=== PATIENT | male | born 1950 | race Caucasian/White ===

== ENCOUNTER 2020-12-21 19:07 | Inpatient (IN) | payer OTHER ==
--- NOTE | 2020-12-21 20:55 | RAD REPORT ---
EXAM DESCRIPTION: RAD - Foot Right 3 View - 12/21/2020 8:46 pm CLINICAL HISTORY: Right foot pain FINDINGS: Extensive bony fragmentation involves the tarsal metatarsal joints. The proximal metatarsa ls are dislocated. Multiple nondisplaced fractures. 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 Large calcaneal spur
[2020-12-21 21:41] LABS: Absolute Lymphocytes (CBC) 1.2 K/uL (0.7-4.9); Basophils % 0.3 % (0-1.3); Hematocrit 31.4 % (39.6-49.0); Lymphocytes % 7.3 % (15.3-44.8); MPV 8.2 fL (7.6-11.3); RBC Red Blood Cell Count 3.62 M/uL (4.33-5.43)
[2020-12-21] MEDS ORDERED: NA CHLORIDE 0.9% 250 ML ONE (21:41)
[2020-12-21] MEDS ORDERED: Levofloxacin 750mg IV 750 MG/150 ML BAG IV ONE (21:41)
[2020-12-21] MEDS ORDERED: VANCOMYCIN 1 GM/VIAL ONE (21:41)
[2020-12-21 21:57] LABS: ALT/SGPT 24 U/L (12-78); AST/SGOT 16 U/L (15-37); Albumin 2.7 g/dL (3.4-5.0); Alkaline Phosphatase 138 U/L (45-117); BUN Blood Urea Nitrogen 20 mg/dL (7-18); Bicarbonate 26 mmol/L (21-32); Bilirubin Direct 0.2 mg/dL (0-0.2); Bilirubin Total 0.5 mg/dL (0.2-1.0); Glucose Level 117 mg/dL (74-106); Potassium 5.3 mmol/L (3.5-5.1); Protein, Total 8.2 g/dL (6.4-8.2); Sodium Level 135 mmol/L (136-145); Troponin (Emerg Dept Use Only) < 0.02 ng/mL (0.0-0.045)
--- NOTE | 2020-12-21 22:12 | ER ---
Nurse's Notes [facility] Name: Tristin Mazariegos Age: 70 yrs Sex: Male : 1950 Arrival Date: 12/21/2020 Time: 19:11 Bed 25 Private MD: Diagnosis: Cellulitis of right lower limb Presentation: 12/21 19:53 Chief complaint: Patient states: Pt has Right foot pain, redness, swelling, and fever vg1 that began yesterday. Pt stated fever today at 1930 was 102.2, did not give meds. Pt also took an antibiotic today at 1500. Coronavirus screen: Client denies travel out of the [place] in the last 14 days. Ebola Screen: Patient negative for fever greater than or equal to 101.5 degrees Fahrenheit, and additional compatible Ebola Virus Disease symptoms. Initial Sepsis Screen: Does the patient meet any 2 criteria? No. Patient's initial sepsis screen is negative. Does the patient have a suspected source of infection? No. Patient's initial sepsis screen is negative. Risk Assessment: Do you want to hurt yourself or someone else? Patient reports no desire to harm self or others. Onset of symptoms was December 20, 2020. 19:53 Method Of Arrival: Wheelchair vg1 19:53 Acuity: RANDOLPH 3 vg1 Triage Assessment: 19:58 Pain: Complains of pain in Right Foot Pain currently is 8 out of 10 on a pain scale. vg1 Historical: - Allergies: 19:58 No Known Allergies; vg1 - Immunization history:: Adult Immunizations up to date, Client reports receiving the 2nd dose of the Covid vaccine. - Social history:: Smoking status: Patient denies any tobacco usage or history of. Screenin:30 Abuse screen: Denies threats or abuse. Denies injuries from another. Nutritional wh screening: No deficits noted. Tuberculosis screening: No symptoms or risk factors identified. Fall Risk None identified. Assessment: 20:15 General: Appears in no apparent distress. Behavior is calm, cooperative, appropriate wh for age. Pain: Complains of pain in right foot. Neuro: Level of Consciousness is awake, alert, obeys commands, Oriented to person, place, time, situation, Appropriate for age. Cardiovascular: Capillary refill < 3 seconds. Respiratory: Airway is patent Respiratory effort is even, unlabored, Respiratory pattern is regular, symmetrical. GI: Abdomen is round non-distended. : No signs and/or symptoms were reported regarding the genitourinary system. EENT: No signs and/or symptoms were reported regarding the EENT system. Derm: Skin is red, Right foot. Musculoskeletal: Swelling right foot. 21:30 Reassessment: Patient appears in no apparent distress at this time. No changes from previously documented assessment. Patient and/or family updated on plan of care and expected duration. Pain level reassessed. Patient is alert, oriented x 3, equal unlabored respirations, skin warm/dry/pink. 22:24 Reassessment: Patient appears in no apparent distress at this time. Patient and/or family updated on plan of care and expected duration. Pain level reassessed. Patient is alert, oriented x 3, equal unlabored respirations, skin warm/dry/pink. 23:46 Reassessment: Patient and/or family updated on plan of care and expected duration. Pain bb level reassessed. pt resting quietly, IV site intact, patent with fluids infusing, spouse at bedside awaiting room assignment. Vital Signs: 19:53 BP 111 / 69; Pulse 90; Resp 18; Temp 100.2; Pulse Ox 95% ; Weight 115.67 kg; Height 6 vg1 ft. 0 in. (182.88 cm); Pain 8/10; 21:00 BP 113 / 55; Pulse 77; Resp 18; Pulse Ox 97% ; wh 22:15 BP 112 / 61; Pulse 86; Resp 18; Pulse Ox 98% on R/A; wh 23:10 Temp 100.2; bb 23:46 BP 93 / 58; Pulse 81; Resp 18 S; Temp 99.6(O); Pulse Ox 96% on R/A; bb 19:53 Body Mass Index 34.58 (115.67 kg, 182.88 cm) vg1 ED Course: 19:11 Patient arrived in ED. bp1 19:58 Triage completed. vg1 19:58 Arm band placed on. vg1 20:10 Sandra Jolly FNP-C [facility] kb 20:10 Cristina Raza MD is Attending Physician. kb 20:26 Marisol Davenport, UGO is Primary Nurse. wh 20:30 Patient has correct armband on for positive identification. Bed in low position. Call light in reach. Side rails up X 1. monitor car operator on. Pulse ox on. NIBP on. 20:45 Foot Right 3 View XRAY In Process Unspecified. EDMS 21:41 Extremity Venous Uni Ltd US In Process Unspecified. EDMS 22:11 Tony Desir MD is Hospitalizing Provider. kb 22:25 Report given to Shaylee Short RN. 12/22 00:02 No provider procedures requiring assistance completed. Patient admitted, IV remains in bb place. Administered Medications: 12/21 21:30 Drug: LevaQUIN (levofloxacin) 750 mg Route: IVPB; Site: right antecubital; 23:10 Follow up: IV Status: Completed infusion; IV Intake: 100ml 23:10 Drug: vancoMYCIN 1 grams Route: IVPB; Infused Over: 2 hrs; Site: right antecubital; 12/22 00:19 Follow up: IV Status: Infusion continued upon admission 12/21 23:10 Drug: Tylenol 1000 mg Route: PO; 23:54 Follow up: Response: Temperature is decreased bb Intake: 23:10 IV: 100ml; Total: 100ml. bb Outcome: 22:11 Decision to Hospitalize by Provider. 12/22 00:02 Admitted to Tele accompanied by tech, family with patient, via stretcher, room 229, bb with chart, Report called to Shailesh ARIZMENDI Condition: stable Instructed on the need for admit. 00:20 Patient left the ED. bb Signatures: Dispatcher [employer] EDMS Sandra Jolly, CURTAIN FELLER BLINDSTITCH-Jovanna BRAUN-Shaylee Wood, RN RN Marisol Davenport, UGO ARIZMENDI Lizet Morel, RN RN vg1 Lisa Perry bp1
--- NOTE | 2020-12-21 22:12 | EDPHYS ---
Physician Documentation [facility] Name: Tristin Mazariegos Age: 70 yrs Sex: Male : 1950 Arrival Date: 12/21/2020 Time: 19:11 Bed 25 Private MD: ED Physician Cristina Raza HPI: 12/21 22:09 This 70 yrs old Male presents to ER via Wheelchair with complaints of Fever, kb Foot Pain. 22:09 The patient has experienced a previous episode. The patient has been recently seen by a physician: sleeve tailor. 22:10 The patient presents with cellulitis of the dorsum of right foot and arch of right kb foot. Description: erythematous, hot, swollen. Onset: The symptoms/episode began/occurred 2 week(s) ago, and became worse. Possible cause(s): unknown. Associated signs and symptoms: Pertinent positives: erythema, swelling. Modifying factors: the symptoms are alleviated by nothing, the symptoms are aggravated by nothing. Severity of symptoms: At their worst the symptoms were moderate, in the emergency department the symptoms are unchanged. Historical: - Allergies: 19:58 No Known Allergies; vg1 - Immunization history:: Adult Immunizations up to date, Client reports receiving the 2nd dose of the Covid vaccine. - Social history:: Smoking status: Patient denies any tobacco usage or history of. ROS: 22:06 Constitutional: Positive for fever. kb 22:06 Skin: Positive for cellulitis, erythema, swelling, of the arch of right foot and dorsum of right foot. 22:06 All other systems are negative. Exam: 22:06 Constitutional: This is a well developed, well nourished patient who is awake, alert, kb and in no acute distress. Head/Face: Normocephalic, atraumatic. ENT: Moist Mucous membranes Cardiovascular: Regular rate and rhythm with a normal S1 and S2. No gallops, murmurs, or rubs. No pulse deficits. Respiratory: Respirations even and unlabored. No increased work of breathing, no retractions or nasal flaring. Abdomen/GI: Soft, non-tender. No distention MS/ Extremity: Pulses equal, no cyanosis. Neurovascular intact. Full, normal range of motion. Neuro: Awake and alert, GCS 15, oriented to person, place, time, and situation. Moves all extremities. Normal gait. Psych: Awake, alert, with orientation to person, place and time. Behavior, mood, and affect are within normal limits. 22:06 Skin: cellulitis, that is moderate, on the dorsum of right foot and arch of right foot. Vital Signs: 19:53 BP 111 / 69; Pulse 90; Resp 18; Temp 100.2; Pulse Ox 95% ; Weight 115.67 kg; Height 6 vg1 ft. 0 in. (182.88 cm); Pain 8/10; 21:00 BP 113 / 55; Pulse 77; Resp 18; Pulse Ox 97% ; wh 22:15 BP 112 / 61; Pulse 86; Resp 18; Pulse Ox 98% on R/A; wh 23:10 Temp 100.2; bb 23:46 BP 93 / 58; Pulse 81; Resp 18 S; Temp 99.6(O); Pulse Ox 96% on R/A; bb 19:53 Body Mass Index 34.58 (115.67 kg, 182.88 cm) vg1 MDM: 20:10 Patient medically screened. kb 22:05 Data reviewed: vital signs, nurses notes. Data interpreted: Pulse oximetry: on room air kb is 95 %. Interpretation: normal. Counseling: I had a detailed discussion with the patient and/or guardian regarding: the historical points, exam findings, and any diagnostic results supporting the discharge/admit diagnosis, lab results, radiology results, the need for further work-up and treatment in the hospital. 22:08 Physician consultation: Lee AGUIRRE was contacted at 22:08, regarding admission, kb to the medical/surgical unit. patient's condition, in the emergency department to see patient at 22:09. 12/21 20:18 Order name: CBC with Diff; Complete Time: 21:45 kb 12/21 20:18 Order name: Blood Culture Adult (2) kb 12/21 20:18 Order name: Lactate; Complete Time: 22:01 kb 12/21 20:18 Order name: Procalcitonin; Complete Time: 23:07 kb 12/21 20:35 Order name: COVID-19 : Document "Date of Symptom Onset" if Symptomatic. kb 12/21 20:22 Order name: Foot Right 3 View XRAY; Complete Time: 20:58 kb 12/21 20:48 Order name: Extremity Venous Uni Ltd US [facility] 12/21 20:48 Order name: Troponin (emerg Dept Use Only); Complete Time: 22:04 [facility] 12/21 20:48 Order name: LFT's; Complete Time: 22:04 [facility] 12/21 20:48 Order name: ESR; Complete Time: 22:12 [facility] 12/21 20:48 Order name: CRP; Complete Time: 22:04 [facility] 12/21 21:35 Order name: Basic Metabolic Panel; Complete Time: 22:04 [facility] 12/21 23:23 Order name: SARS-COV-2 RT PCR; Complete Time: 23:23 [facility] 12/21 20:18 Order name: IV Start; Complete Time: 21:18 12/21 20:48 Order name: EKG - Nurse/Tech; Complete Time: 21:18 [facility] Administered Medications: 21:30 Drug: LevaQUIN (levofloxacin) 750 mg Route: IVPB; Site: right antecubital; 23:10 Follow up: IV Status: Completed infusion; IV Intake: 100ml 23:10 Drug: vancoMYCIN 1 grams Route: IVPB; Infused Over: 2 hrs; Site: right antecubital; 12/22 00:19 Follow up: IV Status: Infusion continued upon admission 12/21 23:10 Drug: Tylenol 1000 mg Route: PO; 23:54 Follow up: Response: Temperature is decreased bb Disposition: 22:11 Chart complete. kb Disposition: 12/21/20 22:11 Hospitalization ordered by Tony Desir for Inpatient Admission. Preliminary diagnosis is Cellulitis of right lower limb. - Bed requested for Telemetry/MedSurg (Inpatient). - Status is Inpatient Admission. bb - Condition is Stable. - Problem is new. - Symptoms are unchanged. Signatures: Dispatcher [employer] EDVT Sandra Jolly, APARNA-C COMMUNITY HEALTH REPRESENTATIVE-Sharon Thomas RN UGO Shaylee Short RN RN bb Attema, Lee, FNP-C FNP-Marisol Partida RN RN Lizet Morel, RN RN vg1 Corrections: (The following items were deleted from the chart) 21:34 20:19 BASIC METABOLIC PANEL+C.LAB.BRZ ordered. EDVT EDVT 22:11 22:09 Modifying factors: there are no obvious modifying factors, kb kb 22:11 22:09 Associated signs and symptoms: Pertinent positives: kb kb 23:56 22:11 Hospitalization Ordered by Tony Desir MD for Inpatient Admission. Preliminary dw diagnosis is Cellulitis of right lower limb. Bed requested for Telemetry/MedSurg (Inpatient). Status is Inpatient Admission. Condition is Stable. Problem is new. Symptoms are unchanged. kb 12/22 00:20 12/21 23:56 12/21/2020 22:11 Hospitalization Ordered by Tony Desir MD for Inpatient bb Admission. Preliminary diagnosis is Cellulitis of right lower limb. Bed requested for Telemetry/MedSurg (Inpatient). Status is Inpatient Admission. Condition is Stable. Problem is new. Symptoms are unchanged. dw
--- NOTE | 2020-12-21 22:39 | P.HP ---
Certification for Inpatient Patient admitted to: Inpatient With expected LOS: >2 Midnights Patient will require the following post-hospital care: None Practitioner: I am a practitioner with admitting privileges, knowledge of patient current condition, hospital course, and medical plan of care. Services: Services provided to patient in accordance with Admission requirements found in Title 42 Section 412.3 of the Code of Federal Regulations Patient History Date of Service: 12/21/20 Reason for admission: Cellulitis, fever History of Present Illness: 70-year-old male with history of atrial fibrillation, borderline diabetes, hypertension, CAD, BPH presents emergency department for fever and foot pain/rash. Patient history of Charcot deformity to the right lower extremity, sees podiatry on outpatient basis. Patient started running fever this morning, T-max 102, was given prescription for Augmentin which she took 1 dose of today. Podiatry recommended evaluation in the emergency department due to fever, patient evaluated in the emergency department, labs significant for white blood cell count 16.6 hemoglobin 10.5 hematocrit 31.4 ESR 118 sodium 135 potassium 5.3, BUN 20, glucose 117 C-reactive protein 74.4, x-ray right foot demonstrates extensive bony fragmentation involving the tarsal metatarsal joints proximal metatarsals dislocated, multiple nondisplaced fractures. Clubfoot deformity noted, area cellulitis to the medial aspect to the foot extending to include area. ED provider wishes to admit for further evaluation and m anagement. - Past Medical/Surgical History -: Diabetes mellitus type 2 -: Atrial fibrillation -: Hypertension -: BPH -: Diabetic neuropathy -: Charcot right foot -: CAD -: Chronic pain -: Right foot surgery -: Basal cell carcinoma nose Psychosocial/ Personal History: Patient is retired, lives at home with his - Family History Mother -: Heart disease, Diabetes, Cancer Brother -: Heart disease, Diabetes - Social History Smoking Status: Never smoker Alcohol use: No CD- Drugs: No Caffeine use: Yes Place of Residence: Home Review of Systems 10-point ROS is otherwise unremarkable Musculoskeletal: Foot Pain, As per HPI Integumentary: As per HPI Physical Examination - Physical Exam General: Alert, In no apparent distress, Oriented x3 HEENT: Atraumatic, PERRLA, Mucous membr. moist/pink, EOMI, Sclerae nonicteric Neck: Supple, 2+ carotid pulse no bruit, No LAD, Without JVD or thyroid abnormality Respiratory: Clear to auscultation bilaterally, Normal air movement Cardiovascular: Regular rate/rhythm, Normal S1 S2 Gastrointestinal: Normal bowel sounds, No tenderness Musculoskeletal: Erythema, Tenderness, Warmth, Other (Clubfoot noted to the right foot/Charcot) Integumentary: Tenderness/swelling, Erythema, Warmth Neurological: Normal speech, Normal strength at 5/5 x4 extr, Normal tone, Normal affect Lymphatics: No axilla or inguinal lymphadenopathy - Studies Laboratory Data (last 24 hrs) 12/21/20 21:20: Sodium 135 L, Potassium 5.3 H, BUN 20 H, Creatinine 0.83, Glucose 117 H, Total Bilirubin 0.5, AST 16, ALT 24, Alkaline Phosphatase 138 H 12/21/20 21:20: WBC 16.60 H, Hgb 10.5 L, Hct 31.4 L, Plt Count 332 12/21/20 20:18: Sodium Cancelled, Potassium Cancelled, BUN Cancelled, Creatinine Cancelled, Glucose Cancelled Assessment and Plan - Plan Assessment Fever, Cellulitis right foot with history of Charcot deformity suspect osteomyelitis Atrial fibrillation not on chronic anticoagulation therapy Diabetes mellitus type 2 CAD, hypertension, BPH, chronic pain Plan Fever, Cellulitis right foot with history of Charcot deformity suspect osteomyelitis: Blood cultures obtained in the emergency department, continue with IV Levaquin, vancomycin. Will obtain MRI of the foot to rule out osteomyelitis. Infectious Disease consulted for additional assistance. Anticipate need for PICC line and long-term antibiotics, patient will likely be able to do this with home health if it determined to be necessary. Daily labs, DVT prophylaxis Lovenox 40 mg subcutaneous once daily. Atrial fibrillation not on chronic anticoagulation therapy: Home medications continued including amiodarone, Plavix Diabetes mellitus type 2: A.c. HS Accu-Cheks, sliding scale insulin therapy. A1c with morning labs. CAD, hypertension, BPH, chronic pain: Continue home medications, stable. Discharge Plan: Home Plan to discharge in: Greater than 2 days - Advance Directives Does patient have a Living Will: No Does patient have a Durable POA for Healthcare: No - Code Status/Comfort Care Code Status Assessed: Yes (Full code) Critical Care: No Time Spent Managing Pts Care (In Minutes): 55
[2020-12-21] MEDS ORDERED: ACETAMINOPHEN 500 MG TAB ONE (23:32)
[2020-12-22] MEDS ORDERED: VANCOMYCIN/NS 1 gm 1 GM/250 ML BAG IVPB SCH (00:34)
[2020-12-22] MEDS ORDERED: Levofloxacin500mg IV 500 MG/100 ML BAG IV SCH (00:34)
[2020-12-22] MEDS ORDERED: ONDANSETRON 4 MG/2 ML VIAL IV PRN (00:34)
[2020-12-22] MEDS ORDERED: VANCOMYCIN/NS 1 gm 1 GM/250 ML BAG IVPB ONE (01:00)
[2020-12-22] MEDS ORDERED: NA CHLORIDE 0.9% 250 ML ONE (01:31)
[2020-12-22] MEDS ORDERED: VANCOMYCIN 1 GM/VIAL ONE (01:31)
[2020-12-22 02:00] VITALS: BMI 35.0
[2020-12-22 04:27] LABS: Urine Appearance CLEAR (Clear); Urine Bilirubin NEGATIVE (Negative); Urine Blood NEGATIVE (Negative); Urine Color YELLOW (Yellow); Urine Glucose NEGATIVE (Negative); Urine Protein TRACE (Negative); Urine Specific Gravity 1.015 (1.005-1.030)
[2020-12-22 04:42] LABS: Urine Microscopic Reflex ORDER UMIC
[2020-12-22 04:54] LABS: Urine Bacteria <20 /HPF (NONE SEEN); Urine RBC <5 /HPF (NONE SEEN); Urine Urothelial Cells <5 /HPF (NONE SEEN)
[2020-12-22 04:57] LABS: Absolute Lymphocytes (CBC) 1.6 K/uL (0.7-4.9); Basophils % 0.3 % (0-1.3); Hematocrit 29.3 % (39.6-49.0); Lymphocytes % 12.6 % (15.3-44.8); MPV 8.2 fL (7.6-11.3); RBC Red Blood Cell Count 3.36 M/uL (4.33-5.43)
[2020-12-22 05:23] LABS: ALT/SGPT 21 U/L (12-78); AST/SGOT 15 U/L (15-37); Albumin 2.5 g/dL (3.4-5.0); Alkaline Phosphatase 122 U/L (45-117); BUN Blood Urea Nitrogen 21 mg/dL (7-18); Bicarbonate 26 mmol/L (21-32); Bilirubin Total 0.6 mg/dL (0.2-1.0); Glucose Level 100 mg/dL (74-106); HDL Cholesterol 53 mg/dL (40-60); LDL Cholesterol, Calculated 33 (<130); Magnesium 2.3 mg/dL (1.8-2.4); Potassium 4.5 mmol/L (3.5-5.1); Protein, Total 7.5 g/dL (6.4-8.2); Sodium Level 138 mmol/L (136-145); Thyroid Stimulating Hormone 0.803 uIU/mL (0.360-3.740)
[2020-12-22] MEDS: MORPHINE 2 MG/ML SYR IV PRN ×4 (05:42→22:11)
[2020-12-22 06:15] LABS: Ferritin 739.9 ng/mL (26-388); Transferrin 170 mg/dL (200-360)
[2020-12-22 06:51] LABS: Blood Morphology Comment NOT SEEN (NOT SEEN); Platelet Estimate ADEQ
[2020-12-22] MEDS: INSULIN -REGULAR HUMAN 50 UNIT/0.5 ML ML SQ SCH ×4 (07:30→20:26)
--- NOTE | 2020-12-22 08:53 | RAD REPORT ---
EXAM DESCRIPTION: US - Extremity Venous Uni Ltd - 12/21/2020 9:41 pm CLINICAL HISTORY: SWELLING Leg swelling and edema. COMPARISON: No comparisons FINDINGS: Right lower extremity venous system was interrogated with Doppler technique. Normal flow, compressibility and augmentation was noted. There is no DVT present. IMPRESSION: No evidence of right lower extremity deep venous thrombosis.
--- NOTE | 2020-12-22 08:59 | EKG ---
Test Date: 2020-12-21 Test Time: 21:52:29 Traffic Operator: MEASUREMENT RESULTS: Intervals: Rate: 85 CO: 194 QRSD: 170 QT: 418 QTc: 497 Bluejacket: P: 102 CO: 194 QRS: -83 T: 44 INTERPRETIVE STATEMENTS: Sinus rhythm with fusion complexes Left axis deviation Right bundle branch block Abnormal ECG Compared to ECG 09/08/2012 11:12:49 Fusion complex(es) now present Left-axis deviation now present Right bundle-branch block now present Atrial premature complex(es) no longer present Electronically Signed On 12-22-20 08:58:39 CDT by Mauricio Guaman
[2020-12-22] MEDS ORDERED: CLOPIDOGREL 75 MG TABLET PO SCH (09:00)
[2020-12-22] MEDS: METOPROLOL TAR 50 MG TAB PO SCH ×2 (09:09→20:33)
[2020-12-22] MEDS: METFORMIN HCL 500 MG TAB PO SCH ×3 (09:10→17:42)
[2020-12-22] MEDS: AMIODARONE HCL 200 MG TAB PO SCH (09:10)
[2020-12-22] MEDS: MONTELUKAST 10 MG TAB PO SCH (09:10)
[2020-12-22] MEDS: GABAPENTIN 300 MG CAP PO SCH ×3 (09:10→20:25)
[2020-12-22] MEDS: ENOXAPARIN 40 MG/0.4 ML SQ SCH (09:10)
[2020-12-22] MEDS: FUROSEMIDE 40 MG TABLET PO SCH (09:10)
[2020-12-22] MEDS: ENALAPRIL 10 MG TAB PO SCH (09:10)
--- NOTE | 2020-12-22 11:54 | P.CNS ---
Date of Consult: 12/22/20 Chief Complaint: Cellulitis, fever History of Present Illness: Patient is a 70-year-old male with a past medical history of AFib, diabetes, hypertension, CAD, BPH who presented to the emergency department due to fever and right foot pain/cellulitis. Patient states that his 1st initial issues with his right foot starting to have an 17 neck Plan a cabinet fell on the foot shattering of multiple bones. Patient states that he was placed in a cast, and soon developed a ulcer to the plantar aspect of the foot. 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 Unknown if he is ever diagnosed with osteomyelitis in the past. He did complete a 6 week course of IV antibiotics at that time. Patient has history of Charcot deformity, follows with Podiatry outpatient care patient initially noted increased swelling/erythema on his right foot about 3 weeks ago after he tripped and fell. Patient completed a 2 week course of Augmentin which empirically symptoms however bottle weeks later the swelling/erythema came back in this time the patient spiked a fever. Foot x-ray taken on 12/21 showed extensive bony fragmentation. Dopplers negative for DVT. Patient has started on vancomycin and Levaquin. MRI has been ordered. Patient denies nausea, vomiting, diarrhea, shortness breath, chest pain. Allergies No Known Allergies Allergy (Verified 12/22/20 00:32) Home Medications: Amiodarone HCl [Pacerone] 1 tab PO DAILY 12/22/20 Clopidogrel Bisulfate [Plavix] 75 mg PO NOON 12/22/20 Enalapril [Vasotec*] 20 mg PO DAILY 12/22/20 Furosemide 1 tab PO DAILY 12/22/20 Gabapentin 1 tab PO TID 12/22/20 Metformin HCl 1 tab PO TID 12/22/20 Metoprolol Tartrate 1 tab PO BID 12/22/20 Montelukast Sodium 1 tab PO DAILY 12/22/20 Semaglutide [Ozempic] 0.5 mg SQ Q7D 12/22/20 Tamsulosin [Flomax*] 1 tab PO BEDTIME 12/22/20 traMADol HCL [Ultram*] 1 tab PO QID PRN 12/22/20 - Past Medical/Surgical History Diabetic: Yes -: NIDDM -: Atrial fibrillation -: Hypertension -: BPH -: Diabetic neuropathy -: Charcot right foot -: CAD -: Chronic pain -: Heart stent -: Right foot surgery -: Basal cell carcinoma nose -: Left leg surgery Psychosocial/ Personal History: Patient is retired, lives at home with his - Family History Mother Medical History: Heart disease, Diabetes, Cancer Notes: Brother Medical History: Heart disease, Diabetes - Social History Alcohol use: No CD- Drugs: No Caffeine use: No Place of Residence: Home Review of Systems 10-point ROS is otherwise unremarkable Physical Examination Temp Pulse Resp BP Pulse Ox 99.2 F 82 19 140/65 95 12/22/20 08:00 12/22/20 09:10 12/22/20 08:00 12/22/20 09:10 12/22/20 08:00 General: Alert, In no apparent distress HEENT: Atraumatic, Normocephalic Neck: Supple, 2+ carotid pulse no bruit Respiratory: Clear to auscultation bilaterally, Normal air movement Cardiovascular: No edema, Normal pulses, Regular rate/rhythm Capillary refill: <2 Seconds Gastrointestinal: Normal bowel sounds, Soft and benign Musculoskeletal: No clubbing, No swelling Integumentary: Other (Right foot Charcot changes- selling and erythema noted to foot. No open wounds/ulcers.) Neurological: Normal speech, Normal strength at 5/5 x4 extr External genitalia: Deferred Rectal: Deferred Laboratory Data (last 24 hrs) 12/21/20 21:20: Sodium 135 L, Potassium 5.3 H, BUN 20 H, Creatinine 0.83, Glucose 117 H, Total Bilirubin 0.5, AST 16, ALT 24, Alkaline Phosphatase 138 H 12/21/20 21:20: WBC 16.60 H, Hgb 10.5 L, Hct 31.4 L, Plt Count 332 12/21/20 20:18: Sodium Cancelled, Potassium Cancelled, BUN Cancelled, Creatinine Cancelled, Glucose Cancelled Conclusions/Impression: Antibiotics: -vancomycin Start: 12/21 stop: -- Levaquin start: 12/21 stop: -- Assessment: -right foot charcot changes with cellulitis -diabetes mellitus type 2 -anemia and -leukocytosis Plan: -right foot but x-ray taken on 12/21 showed extensive bony fragmentation. Pending MRI. Continue empiric therapy with vancomycin Levaquin. Blood cultures pending. -medical management per primary team -continue monitor CBC and BMP -continue to monitor for signs of infection Plan of care discussed with Dr. Guzman Thank you for consultation.
[2020-12-22] MEDS: ACETAMINOPHEN 500 MG TAB PO PRN ×2 (12:14→22:11)
[2020-12-22] MEDS: VANCOMYCIN 2 GM in NA CHLORIDE 0.9% 500 ML IVPB SCH (13:20)
[2020-12-22] MEDS: CLOPIDOGREL 75 MG TABLET PO SCH (13:21)
--- NOTE | 2020-12-22 16:23 | P.PN ---
Subjective Date of Service: 12/22/20 Chief Complaint: Cellulitis, fever Subjective: Other (mild improvement in pain, still has sharp pains shooting up legs intermittently. no change in erythema/swelling) Review of Systems 10-point ROS is otherwise unremarkable Physical Examination - Vital Signs Temperature: 99 F Blood Pressure: 128/62 Pulse: 102 Respirations: 19 Pulse Ox (%): 96 - Studies Laboratory Data (last 24 hrs) 12/21/20 21:20: Sodium 135 L, Potassium 5.3 H, BUN 20 H, Creatinine 0.83, Glucose 117 H, Total Bilirubin 0.5, AST 16, ALT 24, Alkaline Phosphatase 138 H 12/21/20 21:20: WBC 16.60 H, Hgb 10.5 L, Hct 31.4 L, Plt Count 332 12/21/20 20:18: Sodium Cancelled, Potassium Cancelled, BUN Cancelled, Creatinine Cancelled, Glucose Cancelled Assessment & Plan Physician Review Additional Text: Physical Exam General: Alert, In no apparent distress, Oriented x3 HEENT: Mucous membr. moist/pink, EOMI, Sclerae nonicteric Respiratory: Clear to auscultation bilaterally, Normal air movement Cardiovascular: Regular rate/rhythm, Normal S1 S2 Gastrointestinal: soft, nontender, nondistended Musculoskeletal: Erythema, Tenderness, Warmth, of R foot, no opening / drainage Neurological: Normal speech, normal affect Problem List Fever, Cellulitis right foot with history of Charcot deformity suspect osteomyelitis Atrial fibrillation not on chronic anticoagulation therapy Normocytic anemia Diabetes mellitus type 2 CAD, hypertension, BPH, chronic pain -f/u cultures, continue IV levaquin/vanc for now -pain medication PRN -MRI ordered to further eval -ID consulted -continue home meds - amiodarone, Plavix, gabapentin, flomax -anemia workup pending -Dr. Marcial consulted Dispo: anticipate dc home, likely 1-2 days, MRI pending Time Spent Managing Pts Care (In Minutes): 35
[2020-12-22] MEDS: TAMSULOSIN 0.4 MG SR CAP PO SCH (17:42)
--- NOTE | 2020-12-22 17:57 | RAD REPORT ---
EXAM DESCRIPTION: MRI - Foot Right Wo Cont - 12/22/2020 5:31 pm CLINICAL HISTORY: R/O osteo COMPARISON: Foot Right 3 View dated 12/21/2020 TECHNIQUE: Multiplanar imaging of the right foot performed using T1 weighted, T1 fat saturation T2 f at saturation and T2 stir sequencing. FINDINGS: Distal tibia and fibula show minimal hypointense T1 and hyperintense T2 signal along the p osterior margin and in the inferior aspect of the medial malleolus. Degenerative signal is seen at th e tip of the fibula with hypointense T1 and hyperintense T2 signal present. Extensive heterogeneous, hypointense T1 signal present throughout nearly all of the talus and in in t he mid and anterior aspect of the calcaneus. A small plantar spur is present. The posterior most aspe ct of the calcaneus shows normal signal where the Achilles and plantar tendons attached. No gross fra cture deformity of the talus or calcaneus. Base of the fifth metatarsal is fractured. Abnormal hypointense T1 and hyperintense T2 signal is pres ent from the base to distal shaft. The fifth metatarsal head maintains normal signal. Hypo and obtain ed ski 1 hyperintense T2 signal present in the base of the second- fourth metatarsals. First metatars al signal abnormality extends from base to distal shaft. There is dorsal dislocation of the first-fourth metatarsals. The navicular bone is rotated medially a nd shows abnormal T1/T2 signal characteristics. The medial cuneiform is dislocated superiorly along w ith the first metatarsal base. Middle and lateral cuneiform bones are poorly defined and displaced in feriorly in the foot. Cuboid bone is difficult to identified but is probably displaced to the medial plantar region of the foot. Fluid is seen centrally within the joint space. A small 2 centimeter flui d collection is present along the medial margin of the first metatarsal base. Extensive soft tissue signal abnormality is present in the midfoot tissues prominently along the plan tar surface of the foot. IMPRESSION: Right foot fracture dislocation changes are present as detailed associated with this frandy ropathic joint. The very extensive bone signal abnormality is nonspecific. The fracture dislocation neuropathic joint processes sufficient for creating this pattern of signal abnormality. Concurrent or superimposed ost eomyelitis is certainly possible.
[2020-12-22] MEDS ORDERED: VANCOMYCIN 2 GM in NA CHLORIDE 0.9% 500 ML IVPB SCH (18:00)
[2020-12-22] MEDS: TRAMADOL HCL 50 MG TAB PO PRN (20:25)
[2020-12-22] MEDS: Levofloxacin500mg IV 500 MG/100 ML BAG IV SCH (20:26)
[2020-12-23] MEDS: ACETAMINOPHEN 500 MG TAB PO PRN (02:11)
[2020-12-23] MEDS: VANCOMYCIN 2 GM in NA CHLORIDE 0.9% 500 ML IVPB SCH ×2 (02:11→14:36)
[2020-12-23] MEDS: MORPHINE 2 MG/ML SYR IV PRN ×5 (02:11→23:02)
[2020-12-23 05:50] LABS: ALT/SGPT 16 U/L (12-78); AST/SGOT 10 U/L (15-37); Albumin 2.1 g/dL (3.4-5.0); Alkaline Phosphatase 102 U/L (45-117); BUN Blood Urea Nitrogen 18 mg/dL (7-18); Bicarbonate 29 mmol/L (21-32); Bilirubin Total 0.5 mg/dL (0.2-1.0); Glucose Level 114 mg/dL (74-106); Magnesium 2.2 mg/dL (1.8-2.4); Potassium 4.3 mmol/L (3.5-5.1); Protein, Total 7.1 g/dL (6.4-8.2); Sodium Level 140 mmol/L (136-145)
[2020-12-23] MEDS: INSULIN -REGULAR HUMAN 50 UNIT/0.5 ML ML SQ SCH ×4 (07:30→20:41)
--- NOTE | 2020-12-23 09:03 | P.CNS ---
Date of Consult: 12/23/20 Chief Complaint: Cellulitis, fever Allergies No Known Allergies Allergy (Verified 12/22/20 00:32) Home Medications: Amiodarone HCl [Pacerone] 1 tab PO DAILY 12/22/20 Clopidogrel Bisulfate [Plavix] 75 mg PO NOON 12/22/20 Enalapril [Vasotec*] 20 mg PO DAILY 12/22/20 Furosemide 1 tab PO DAILY 12/22/20 Gabapentin 1 tab PO TID 12/22/20 Metformin HCl 1 tab PO TID 12/22/20 Metoprolol Tartrate 1 tab PO BID 12/22/20 Montelukast Sodium 1 tab PO DAILY 12/22/20 Semaglutide [Ozempic] 0.5 mg SQ Q7D 12/22/20 Tamsulosin [Flomax*] 1 tab PO BEDTIME 12/22/20 traMADol HCL [Ultram*] 1 tab PO QID PRN 12/22/20 - Past Medical/Surgical History Diabetic: Yes -: NIDDM -: Atrial fibrillation -: Hypertension -: BPH -: Diabetic neuropathy -: Charcot right foot -: CAD -: Chronic pain -: Heart stent -: Right foot surgery -: Basal cell carcinoma nose -: Left leg surgery Psychosocial/ Personal History: Patient is retired, lives at home with his - Family History Mother Medical History: Heart disease, Diabetes, Cancer Notes: Brother Medical History: Heart disease, Diabetes - Social History Alcohol use: No CD- Drugs: No Caffeine use: No Place of Residence: Home Review of Systems 10-point ROS is otherwise unremarkable Physical Examination Temp Pulse Resp BP Pulse Ox 97.4 F 81 18 132/66 95 12/23/20 04:00 12/23/20 06:02 12/23/20 06:31 12/23/20 06:02 12/23/20 06:31 General: Alert, In no apparent distress, Oriented x3 Cardiovascular: No edema, Normal pulses Capillary refill: <2 Seconds Musculoskeletal: No clubbing, No swelling, No tenderness, Erythema, Warmth, Other (ora prominence plantar right foot with midfoot malformation) Integumentary: Other (right foot has no open ulceration however there is plantar ora prominence from longstanding charcot arthropathy) Neurological: Abnormal sensation Imagings Data: MRI consistent with charcot arthropathy - Problems (1) Charcot arthropathy of midfoot Current Visit: Yes Status: Acute (2) Charcot foot due to diabetes mellitus Current Visit: Yes Status: Acute Conclusions/Impression: Discussed with patient at length about charcot arthropathy. Patient to follow up with Dr. Arnold Moore and can follow up with Dr. Marcial if desired. Patient would benefit from greater offloading of the right foot including a HOH walker. Until that is obtained patient should be nonweightbearing on the right foot until erythema and edema subside
[2020-12-23] MEDS: ENALAPRIL 10 MG TAB PO SCH (09:31)
[2020-12-23] MEDS: FUROSEMIDE 40 MG TABLET PO SCH (09:32)
[2020-12-23] MEDS: TRAMADOL HCL 50 MG TAB PO PRN (09:32)
[2020-12-23] MEDS: METOPROLOL TAR 50 MG TAB PO SCH ×2 (09:32→20:40)
[2020-12-23] MEDS: GABAPENTIN 300 MG CAP PO SCH ×3 (09:32→20:40)
[2020-12-23] MEDS: AMIODARONE HCL 200 MG TAB PO SCH (09:32)
[2020-12-23] MEDS: MONTELUKAST 10 MG TAB PO SCH (09:32)
[2020-12-23] MEDS: ENOXAPARIN 40 MG/0.4 ML SQ SCH (09:33)
[2020-12-23] MEDS: METFORMIN HCL 500 MG TAB PO SCH ×3 (09:33→17:48)
--- NOTE | 2020-12-23 10:56 | P.PN ---
Subjective Date of Service: 12/23/20 Chief Complaint: Cellulitis, fever Patient seen examined at bedside, no acute events are past 24 hr. WBC down trending. Review of Systems 10-point ROS is otherwise unremarkable Physical Examination - Vital Signs Temperature: 98.6 F Blood Pressure: 132/65 Pulse: 88 Respirations: 20 Pulse Ox (%): 97 Assessment And Plan - Plan General: Alert, In no apparent distress HEENT: Atraumatic, Normocephalic Neck: Supple, 2+ carotid pulse no bruit Respiratory: Clear to auscultation bilaterally, Normal air movement Cardiovascular: No edema, Normal pulses, Regular rate/rhythm Capillary refill: <2 Seconds Gastrointestinal: Normal bowel sounds, Soft and benign Musculoskeletal: No clubbing, No swelling Integumentary: Other (Right foot Charcot changes- selling and erythema noted to foot. No open wounds/ulcers.) Neurological: Normal speech, Normal strength at 5/5 x4 extr External genitalia: Deferred Rectal: Deferred Conclusions/Impression: Antibiotics: current: Levaquin start: 12/21 stop: 01/04 DC: -vancomycin Start: 12/21 stop: 12/23 Assessment: -right foot charcot changes with cellulitis -diabetes mellitus type 2 -anemia and -leukocytosis Plan: -right foot but x-ray taken on 12/21 showed extensive bony fragmentation. MRI report showed: Right foot fracture dislocation changes are present as detailed associated with this neuropathic joint. The very extensive bone signal abnormality is nonspecific. The fracture dislocation neuropathic joint processes sufficient for creating this pattern of signal abnormality. Concurrent or superimposed osteomyelitis is certainly possible. Due to the fact this patient has no open wounds and extensiveness of the foot bony abnormalities, we will treat for cellulitis with 2 weeks of Levaquin. Patient likely has charcot foot abnormalities, fractures, and cellulitis. Advised patient that if he spikes a fever or the erythema/swelling of the right foot worsens after patient has completed his 2 weeks of oral antibiotic therapy that he should come back to the emergency department and she be treated with 6 weeks of IV antibiotics for osteomyelitis. -vancomycin discontinued. Blood cultures negative. -medical management per primary team -continue monitor CBC and BMP -continue to monitor for signs of infection Plan of care discussed with Dr. Guzman Thank you for consultation. Physician Review Additional Text: Physical Exam General: Alert, In no apparent distress, Oriented x3 HEENT: Mucous membr. moist/pink, EOMI, Sclerae nonicteric Respiratory: Clear to auscultation bilaterally, Normal air movement Cardiovascular: Regular rate/rhythm, Normal S1 S2 Gastrointestinal: soft, nontender, nondistended Musculoskeletal: Erythema, Tenderness, Warmth, of R foot, no opening / drainage Neurological: Normal speech, normal affect Problem List Fever, Cellulitis right foot with history of Charcot deformity suspect osteomyelitis Atrial fibrillation not on chronic anticoagulation therapy Normocytic anemia Diabetes mellitus type 2 CAD, hypertension, BPH, chronic pain -f/u cultures, continue IV levaquin/vanc for now -pain medication PRN -MRI ordered to further eval -ID consulted -continue home meds - amiodarone, Plavix, gabapentin, flomax -anemia workup pending -Dr. Marcial consulted Dispo: anticipate dc home, likely 1-2 days, MRI pending
[2020-12-23 11:21] LABS: Absolute Lymphocytes (CBC) 0.9 K/uL (0.7-4.9); Basophils % 0.7 % (0-1.3); Hematocrit 29.4 % (39.6-49.0); Lymphocytes % 9.2 % (15.3-44.8); MPV 8.1 fL (7.6-11.3); RBC Red Blood Cell Count 3.39 M/uL (4.33-5.43)
[2020-12-23] MEDS: CLOPIDOGREL 75 MG TABLET PO SCH (11:39)
--- NOTE | 2020-12-23 11:54 | EKG ---
Test Date: 2020-12-23 Test Time: 10:37:03 Stripper Machine Operator: MARY MEASUREMENT RESULTS: Intervals: Rate: 86 NC: 216 QRSD: 166 QT: 430 QTc: 514 [place]: P: 67 NC: 216 QRS: 259 T: 38 INTERPRETIVE STATEMENTS: Sinus rhythm with 1st degree AV block Right bundle branch block Abnormal ECG Compared to ECG 12/21/2020 21:52:29 First degree AV block now present Fusion complex(es) no longer present Left-axis deviation no longer present Electronically Signed On 12-23-20 11:53:53 CDT by Mauricio Guaman
--- NOTE | 2020-12-23 16:14 | P.PN ---
Subjective Date of Service: 12/23/20 Chief Complaint: Cellulitis, fever Subjective: Improving (less pain, less swelling, less redness. otherwise doing ok) Review of Systems 10-point ROS is otherwise unremarkable Physical Examination - Vital Signs Temperature: 98.9 F Blood Pressure: 143/70 Pulse: 85 Respirations: 20 Pulse Ox (%): 97 - Studies Microbiology Data (last 24 hrs): 12/21/20 21:00 Blood - Blood Gram Stain - Final 12/21/20 21:20 Blood - Blood Blood Culture Gram Stain - Final 12/21/20 21:20 Blood - Blood Gram Stain - Final Assessment & Plan Physician Review Additional Text: Physical Exam General: Alert, In no apparent distress, Oriented x3 HEENT: Mucous membr. moist/pink, EOMI, Sclerae nonicteric Respiratory: Clear to auscultation bilaterally, Normal air movement Cardiovascular: Regular rate/rhythm, Normal S1 S2 Gastrointestinal: soft, nontender, nondistended Musculoskeletal: Erythema, Tenderness, Warmth, of R foot, no opening / drainage, improved Neurological: Normal speech, normal affect Problem List Fever, Cellulitis right foot with history of Charcot deformity, possible osteomyelitis with bacteremia Atrial fibrillation not on chronic anticoagulation therapy Normocytic anemia Diabetes mellitus type 2 CAD, hypertension, BPH, chronic pain -continue IV levaquin/vanc for now, blood cultures now growing GPC in clusters x 2 bottles -echo ordered, pt with h/o endocarditis -MRI can't r/o osteomyelitis due to bone destruction -ID consulted -continue home meds - amiodarone, Plavix, gabapentin, flomax -anemia workup pending -Dr. Marcial consulted - recommends no weightbearing to foot Dispo: anticipate dc home, will need negative blood cultures, workup pending Time Spent Managing Pts Care (In Minutes): 35
[2020-12-23] MEDS: TAMSULOSIN 0.4 MG SR CAP PO SCH (17:48)
[2020-12-23] MEDS: Levofloxacin500mg IV 500 MG/100 ML BAG IV SCH (20:39)
[2020-12-24] MEDS: VANCOMYCIN 2 GM in NA CHLORIDE 0.9% 500 ML IVPB SCH ×2 (01:43→14:14)
[2020-12-24] MEDS: MORPHINE 2 MG/ML SYR IV PRN ×4 (05:31→21:15)
[2020-12-24 06:44] LABS: Hematocrit 30.2 % (39.6-49.0); MPV 8.4 fL (7.6-11.3); RBC Red Blood Cell Count 3.52 M/uL (4.33-5.43)
[2020-12-24 07:02] LABS: BUN Blood Urea Nitrogen 15 mg/dL (7-18); Bicarbonate 27 mmol/L (21-32); Glucose Level 101 mg/dL (74-106); Potassium 4.3 mmol/L (3.5-5.1); Sodium Level 138 mmol/L (136-145)
[2020-12-24] MEDS: INSULIN -REGULAR HUMAN 50 UNIT/0.5 ML ML SQ SCH ×4 (07:30→20:52)
[2020-12-24] MEDS: METFORMIN HCL 500 MG TAB PO SCH ×3 (09:24→16:26)
[2020-12-24] MEDS: MONTELUKAST 10 MG TAB PO SCH (09:24)
[2020-12-24] MEDS: METOPROLOL TAR 50 MG TAB PO SCH ×2 (09:24→20:47)
[2020-12-24] MEDS: FUROSEMIDE 40 MG TABLET PO SCH (09:24)
[2020-12-24] MEDS: GABAPENTIN 300 MG CAP PO SCH ×3 (09:25→20:47)
[2020-12-24] MEDS: ENALAPRIL 10 MG TAB PO SCH (09:25)
[2020-12-24] MEDS: AMIODARONE HCL 200 MG TAB PO SCH (09:25)
[2020-12-24] MEDS: ENOXAPARIN 40 MG/0.4 ML SQ SCH (09:26)
[2020-12-24] MEDS: TRAMADOL HCL 50 MG TAB PO PRN (09:31)
--- NOTE | 2020-12-24 10:36 | P.PN ---
Subjective Date of Service: 12/24/20 Chief Complaint: Cellulitis, fever Subjective: Improving (erythema, pain, swelling improving. denies chest pain or shortness of breath.) Review of Systems 10-point ROS is otherwise unremarkable Physical Examination - Vital Signs Temperature: 98.4 F Blood Pressure: 137/76 Pulse: 85 Respirations: 17 Pulse Ox (%): 98 - Studies Microbiology Data (last 24 hrs): 12/21/20 21:00 Blood - Blood Gram Stain - Final 12/21/20 21:20 Blood - Blood Blood Culture Gram Stain - Final 12/21/20 21:20 Blood - Blood Gram Stain - Final Assessment & Plan Physician Review Additional Text: Physical Exam General: Alert, In no apparent distress, Oriented x3 HEENT: Mucous membr. moist/pink, Sclerae nonicteric, normal conjunctiva Respiratory: Clear to auscultation bilaterally, Normal air movement Cardiovascular: Regular rate/rhythm, Normal S1 S2 Gastrointestinal: soft, nontender, nondistended Musculoskeletal: mild erythema, Tenderness throughout, and warmth, of R foot, no opening / drainage Neurological: Normal speech, normal affect Problem List Fever, Cellulitis right foot with history of Charcot deformity with staph aureus bacteremia Atrial fibrillation not on chronic anticoagulation therapy Normocytic anemia Diabetes mellitus type 2, non-insulin dependent CAD, hypertension, BPH, chronic pain -continue IV levaquin/vanc for now, blood cultures now growing GPC in clusters x 2 bottles -echo ordered to r/o endocarditis, pt with h/o endocarditis several years ago -repeat blood cultures in am -MRI can't r/o osteomyelitis due to bone destruction -ID consulted -continue home meds - amiodarone, Plavix, gabapentin, flomax -Dr. Marcial consulted - recommends no weightbearing to foot, complicated issue - charcot exacerbation with cellulitis, no indications for surgery at this time Dispo: anticipate dc home, will need negative blood cultures, awaiting final blood cultures/sensitivities Time Spent Managing Pts Care (In Minutes): 35
[2020-12-24] MEDS: CLOPIDOGREL 75 MG TABLET PO SCH (11:54)
[2020-12-24] MEDS: TAMSULOSIN 0.4 MG SR CAP PO SCH (16:26)
[2020-12-24] MEDS: Levofloxacin500mg IV 500 MG/100 ML BAG IV SCH (20:47)
[2020-12-25] MEDS: MORPHINE 2 MG/ML SYR IV PRN ×5 (02:00→21:01)
[2020-12-25] MEDS: VANCOMYCIN 2 GM in NA CHLORIDE 0.9% 500 ML IVPB SCH (02:00)
[2020-12-25 06:09] LABS: Absolute Lymphocytes (CBC) 1.1 K/uL (0.7-4.9); Hematocrit 31.4 % (39.6-49.0); Lymphocytes % 17.3 % (15.3-44.8); MPV 8.2 fL (7.6-11.3); RBC Red Blood Cell Count 3.63 M/uL (4.33-5.43)
[2020-12-25] MEDS: INSULIN -REGULAR HUMAN 50 UNIT/0.5 ML ML SQ SCH ×4 (07:30→21:00)
[2020-12-25] MEDS: METFORMIN HCL 500 MG TAB PO SCH ×3 (08:55→16:55)
[2020-12-25] MEDS: GABAPENTIN 300 MG CAP PO SCH ×3 (08:55→21:00)
[2020-12-25] MEDS: AMIODARONE HCL 200 MG TAB PO SCH (08:56)
[2020-12-25] MEDS: ENALAPRIL 10 MG TAB PO SCH (08:56)
[2020-12-25] MEDS: FUROSEMIDE 40 MG TABLET PO SCH (08:56)
[2020-12-25] MEDS: METOPROLOL TAR 50 MG TAB PO SCH ×2 (08:56→21:00)
[2020-12-25] MEDS: MONTELUKAST 10 MG TAB PO SCH (08:56)
[2020-12-25] MEDS: ENOXAPARIN 40 MG/0.4 ML SQ SCH (08:57)
--- NOTE | 2020-12-25 09:25 | P.PN ---
Subjective Date of Service: 12/25/20 Chief Complaint: Cellulitis, fever Subjective: Improving (erythema and swelling improving, no new symptoms, otherwise doing well. voiding / stooling without issue) Review of Systems 10-point ROS is otherwise unremarkable Physical Examination - Vital Signs Temperature: 98.3 F Blood Pressure: 146/72 Pulse: 89 Respirations: 18 Pulse Ox (%): 98 - Studies Microbiology Data (last 24 hrs): 12/21/20 21:00 Blood - Blood Aerobic Blood Culture - Final Staph Aureus 12/21/20 21:00 Blood - Blood Anaerobic Blood Culture - Final Staph Aureus 12/21/20 21:00 Blood - Blood Gram Stain - Final 12/21/20 21:20 Blood - Blood Aerobic Blood Culture - Final Staph Aureus 12/21/20 21:20 Blood - Blood Blood Culture Gram Stain - Final 12/21/20 21:20 Blood - Blood Anaerobic Blood Culture - Final Staph Aureus 12/21/20 21:20 Blood - Blood Gram Stain - Final Assessment & Plan Physician Review Additional Text: Physical Exam General: Alert, In no apparent distress, Oriented x3 HEENT: Mucous membr. moist/pink, Sclerae nonicteric, normal conjunctiva Respiratory: Clear to auscultation bilaterally, Normal air movement Cardiovascular: Regular rate/rhythm, Normal S1 S2 Gastrointestinal: soft, nontender, nondistended Musculoskeletal: mild erythema, Tenderness throughout, and warmth, of R foot, no drainage Neurological: Normal speech, normal affect Problem List Fever, Cellulitis right foot with history of Charcot deformity with staph aureus bacteremia Atrial fibrillation not on chronic anticoagulation therapy Normocytic anemia Diabetes mellitus type 2, non-insulin dependent CAD, hypertension, BPH, chronic pain -continue IV levaquin/vanc for now, blood cultures now growing staph aureus x 2 bottles -awaiting sensitivities -echo ordered to r/o endocarditis, pt with h/o endocarditis several years ago -repeat blood cultures this morning -MRI can't r/o osteomyelitis due to bone destruction -ID consulted, will discuss after sensitivities and repeat blood cultures, may need PICC -continue home meds - amiodarone, Plavix, gabapentin, flomax -Dr. Marcial consulted - recommends no weightbearing to foot, complicated issue - charcot exacerbation with cellulitis, no indications for surgery at this time Dispo: anticipate dc home, will need negative blood cultures, awaiting final blood cultures/sensitivities Time Spent Managing Pts Care (In Minutes): 35
[2020-12-25] MEDS: CLOPIDOGREL 75 MG TABLET PO SCH (12:37)
[2020-12-25] MEDS: TAMSULOSIN 0.4 MG SR CAP PO SCH (16:55)
[2020-12-25] MEDS ORDERED: VANCOMYCIN 2 GM in NA CHLORIDE 0.9% 500 ML IVPB SCH (20:00)
[2020-12-25] MEDS: Levofloxacin500mg IV 500 MG/100 ML BAG IV SCH (21:05)
[2020-12-26] MEDS: MORPHINE 2 MG/ML SYR IV PRN ×3 (01:15→10:47)
[2020-12-26 04:28] LABS: Absolute Lymphocytes (CBC) 1.2 K/uL (0.7-4.9); Basophils % 0.9 % (0-1.3); Hematocrit 29.9 % (39.6-49.0); Lymphocytes % 18.8 % (15.3-44.8); MPV 8.1 fL (7.6-11.3); RBC Red Blood Cell Count 3.47 M/uL (4.33-5.43)
[2020-12-26 04:42] LABS: BUN Blood Urea Nitrogen 12 mg/dL (7-18); Bicarbonate 30 mmol/L (21-32); Glucose Level 100 mg/dL (74-106); Potassium 4.1 mmol/L (3.5-5.1); Sodium Level 142 mmol/L (136-145)
[2020-12-26] MEDS: INSULIN -REGULAR HUMAN 50 UNIT/0.5 ML ML SQ SCH ×4 (07:30→21:00)
[2020-12-26] MEDS: ENOXAPARIN 40 MG/0.4 ML SQ SCH (09:00)
[2020-12-26] MEDS: GABAPENTIN 300 MG CAP PO SCH ×3 (10:41→20:44)
[2020-12-26] MEDS: METOPROLOL TAR 50 MG TAB PO SCH ×2 (10:42→20:44)
[2020-12-26] MEDS: METFORMIN HCL 500 MG TAB PO SCH ×3 (10:42→16:58)
[2020-12-26] MEDS: FUROSEMIDE 40 MG TABLET PO SCH (10:42)
[2020-12-26] MEDS: ENALAPRIL 10 MG TAB PO SCH (10:42)
[2020-12-26] MEDS: AMIODARONE HCL 200 MG TAB PO SCH (10:43)
[2020-12-26] MEDS: MONTELUKAST 10 MG TAB PO SCH (10:43)
--- NOTE | 2020-12-26 12:39 | PN ---
Subjective: The patient lying in bed. No new acute event. Chart reviewed. Objective: Vital Signs: Temperature 97, pulse 96, respirations 20, blood pressure 113/78. Lungs: Clear to auscultation. Heart S1, S2. Regular. Abdomen: Soft, nontender. Bowel sounds present. Extremities: Right foot swelling and erythematous changes have well. Laboratory Data: Shows WBC 6.4, hemoglobin 9.9, platelets are 295. Chemistry shows sodium 142, pota ssium 4.1, chloride 109, bicarb 30, BUN 12, creatinine 0.6. Glucose 100. Micro data; blood cultures are growing Staph aureus. The patient is currently being treated with Levaquin and vancomycin. Assessment And Plan: The patient with cellulitis of right foot with history of Charcot's disease and diabetes mellitus and diabetic neuropathy, currently being treated with vancomycin and Levaquin. We will recommend to stop Levaquin and vancomycin and we will start the patient on Bactrim DS 1 tab p.o . b.i.d. on discharge. Monitor kidney function. Total antibiotics for at least 3 weeks. We will co ntinue supportive care and monitor for signs of infection. The patient to follow with his cardiologi st. BRANDON/MODL Voice ID: [id number] Report ID: [id number]
[2020-12-26] MEDS: CLOPIDOGREL 75 MG TABLET PO SCH (13:06)
[2020-12-26] MEDS: TRAMADOL HCL 50 MG TAB PO PRN ×2 (13:06→21:50)
--- NOTE | 2020-12-26 13:08 | P.PN ---
Subjective Date of Service: 12/26/20 Chief Complaint: Cellulitis, fever Subjective: Improving (swelling and erythema improving, no new symptoms, no chest pain/SOB, no abd pain, no nausea/vomiting) Review of Systems 10-point ROS is otherwise unremarkable Physical Examination - Vital Signs Temperature: 98.4 F Blood Pressure: 169/77 Pulse: 77 Respirations: 20 Pulse Ox (%): 96 Assessment & Plan Physician Review Additional Text: Physical Exam General: Alert, In no apparent distress, Oriented x3 Respiratory: Clear to auscultation bilaterally, Normal air movement Cardiovascular: Regular rate/rhythm, Normal S1 S2 Gastrointestinal: soft, nontender, nondistended Musculoskeletal: minimal erythema, with tenderness and slight warmth of R foot, no opening, no drainage Neurological: Normal speech, normal affect Problem List Fever, Cellulitis right foot with history of Charcot deformity with staph aureus bacteremia Atrial fibrillation not on chronic anticoagulation therapy Normocytic anemia Diabetes mellitus type 2, non-insulin dependent CAD, hypertension, BPH, chronic pain -continue IV levaquin for now, blood culture grew MSSA, vanc dc'd -blood culture from 12/25 [id number] -echo ordered to r/o endocarditis, pt with h/o endocarditis several years ago, awaiting read -MRI can't r/o osteomyelitis due to bone destruction -ID consulted, will review case for recommendations, recommend discharge t omorrow on PO antibiotics if continuing to improve / 2n blood culture without growth -continue home meds - amiodarone, Plavix, gabapentin, flomax -Dr. Marcial consulted - recommends no weightbearing to foot, complicated issue - charcot exacerbation with cellulitis, no indications for surgery at this time Dispo: anticipate dc home tomorrow on PO antibiotics Time Spent Managing Pts Care (In Minutes): 35
[2020-12-26] MEDS: TAMSULOSIN 0.4 MG SR CAP PO SCH (16:57)
[2020-12-26] MEDS: Levofloxacin500mg IV 500 MG/100 ML BAG IV SCH (20:44)
[2020-12-27 00:27] VITALS: O2SAT 96
[2020-12-27] MEDS: MORPHINE 2 MG/ML SYR IV PRN ×2 (03:55→09:53)
[2020-12-27] MEDS: INSULIN -REGULAR HUMAN 50 UNIT/0.5 ML ML SQ SCH ×2 (07:30→11:30)
--- NOTE | 2020-12-27 08:11 | ECHO ---
HEIGHT: 6 ft 0 in WEIGHT: 258 lb 6.4 oz DATE OF STUDY: 12/23/[address]: Tony Desir MD 2-DIMENSIONAL: YES M.MODE: YES DOPPLER: YES COLOR FLOW: YES TDS: NO PORTABLE: NO DEFINITY: NO BUBBLE STUDY: NO DIAGNOSIS: BACTERMIA, EVALUATE VEGETATION, HISTORY OF ENDOCARDITIS 2-3 YRS AGO CARDIAC HISTORY: CATHERIZATION: YES SURGERY: NO PROSTHETIC VALVE: NO PACEMAKER: NO MEASUREMENTS (cm) DIASTOLIC (NORMALS) SYSTOLIC (NORMALS) IVSd 1.1 (0.6-1.2) LA Diam 4.1 (1.9-4.0) LVEF 50% LVIDd 5.9 (3.5-5.7) LVIDs 4.4 (2.0-3.5) %FS 26% LVPWd 1.2 (0.6-1.2) Ao Diam 3.1 (2.0-3.7) 2 DIMENSIONAL ASSESSMENT: RIGHT ATRIUM: NORMAL LEFT ATRIUM: DILATED RIGHT VENTRICLE: NORMAL LEFT VENTRICLE: NORMAL SIZE TRICUSPID VALVE: NORMAL MITRAL VALVE: NORMAL PULMONIC VALVE: NORMAL AORTIC VALVE: STENOTIC PERICARDIAL EFFUSION: NONE AORTIC ROOT: NORMAL LEFT VENTRICULAR WALL MOTION: PARADOXICAL SEPTUM. DOPPLER/COLOR FLOW: MILD AORTIC STENOSIS. AORTIC VALVE AREA 1.7 CENTIMETERS SQUARED. COMMENTS: MILD AORTIC STENOSIS. AORTIC VALVE AREA 1.7 CENTIMETERS SQUARED. PARADOXICAL SEPTUM. NORMAL LEFT VENTRICULAR EJECTION FRACTION. LEFT ATRIAL ENLARGEMENT. NO VEGETATION. TECHNOLOGIST: Cesilia MCKEON
[2020-12-27] MEDS: ENOXAPARIN 40 MG/0.4 ML SQ SCH (09:00)
[2020-12-27] MEDS: METFORMIN HCL 500 MG TAB PO SCH ×2 (09:53→12:11)
[2020-12-27] MEDS: MONTELUKAST 10 MG TAB PO SCH (09:54)
[2020-12-27] MEDS: ENALAPRIL 10 MG TAB PO SCH (09:54)
[2020-12-27] MEDS: GABAPENTIN 300 MG CAP PO SCH ×2 (09:54→12:11)
[2020-12-27] MEDS: AMIODARONE HCL 200 MG TAB PO SCH (09:54)
[2020-12-27] MEDS: FUROSEMIDE 40 MG TABLET PO SCH (09:54)
[2020-12-27] MEDS: METOPROLOL TAR 50 MG TAB PO SCH (09:55)
--- NOTE | 2020-12-27 11:11 | P.DS ---
Admission Date: 12/21/20 Discharge Date: 12/27/20 Disposition: ROUTINE DISCHARGE Discharge Condition: FAIR Reason for Admission: Cellulitis, fever - Problems (1) Cellulitis of foot Current Visit: Yes Status: Acute (2) MSSA bacteremia Current Visit: Yes Status: Acute (3) Charcot arthropathy of midfoot Current Visit: Yes Status: Acute (4) Diabetes mellitus type 2 in obese Current Visit: Yes Status: Acute (5) Sepsis Current Visit: Yes Status: Acute Brief History of Present Illness: 70-year-old gentleman with a history of diabetes mellitus type 2 and right Charcot foot will follows with a [facility] presented to the emergency department with a complaint of fever, pain and swelling of the right Charcot foot. Patient found to have leukocytosis. Foot x-ray showed bony fragmentation dislocated joint and severe deformity of the right foot and possible cellulitis of the medial aspect of the foot. Patient was admitted for further management. Hospital Course: Patient admitted to the medical floor and started on broad-spectrum antibiotics. Blood cultures taking grew MSSA. Infectious Disease saw and evaluated patient. He was started on IV vancomycin and Levaquin and later transition to Levaquin based on MSSA sensitivity. Sepsis resolved. Repeat blood culture yielded no growth. Echocardiogram showed no vegetation. Infectious disease recommend 3 weeks of oral Bactrim therapy. Patient has clinically improved and deemed stable for discharge. He is discharged with Bactrim DS per ID recommendation. Vital Signs/Physical Exam: Temp Pulse Resp BP Pulse Ox 97.8 F 73 16 152/76 H 93 12/27/20 08:00 12/27/20 09:55 12/27/20 09:53 12/27/20 09:55 12/27/20 09:53 General: Alert, In no apparent distress, Oriented x3 HEENT: Mucous membr. moist/pink Neck: JVD not distended Respiratory: Clear to auscultation bilaterally Cardiovascular: No edema, Regular rate/rhythm, Normal S1 S2 Gastrointestinal: Soft and benign, Non-distended, No tenderness Musculoskeletal: No erythema, Other (Right charcot foot) Integumentary: No erythema Neurological: Normal strength at 5/5 x4 extr, Cranial nerves 3-12 intact Lymphatics: No axilla or inguinal lymphadenopathy Laboratory Data at Discharge: WBC 6.40 K/uL (4.3-10.9) 12/26/20 04:00 Hgb 9.9 g/dL (13.6-17.9) L 12/26/20 04:00 Hct 29.9 % (39.6-49.0) L 12/26/20 04:00 Plt Count 295 K/uL (152-406) 12/26/20 04:00 Sodium 142 mmol/L (136-145) 12/26/20 04:00 Potassium 4.1 mmol/L (3.5-5.1) 12/26/20 04:00 BUN 12 mg/dL (7-18) 12/26/20 04:00 Creatinine 0.64 mg/dL (0.55-1.3) 12/26/20 04:00 Glucose 100 mg/dL (74-106) 12/26/20 04:00 Magnesium 2.2 mg/dL (1.8-2.4) 12/23/20 05:10 Total Bilirubin 0.5 mg/dL (0.2-1.0) 12/23/20 05:10 AST 10 U/L (15-37) L 12/23/20 05:10 ALT 16 U/L (12-78) 12/23/20 05:10 Alkaline Phosphatase 102 U/L (45-117) 12/23/20 05:10 Triglycerides 69 mg/dL (<150) 12/22/20 04:16 Cholesterol 100 mg/dL (<200) 12/22/20 04:16 HDL Cholesterol 53 mg/dL (40-60) 12/22/20 04:16 Cholesterol/HDL Ratio 1.89 12/22/20 04:16 Home Medications: Amiodarone HCl [Pacerone] 1 tab PO DAILY 12/22/20 Clopidogrel Bisulfate [Plavix] 75 mg PO NOON 12/22/20 Enalapril [Vasotec*] 20 mg PO DAILY 12/22/20 Furosemide 1 tab PO DAILY 12/22/20 Gabapentin 1 tab PO TID 12/22/20 Metformin HCl 1 tab PO TID 12/22/20 Metoprolol Tartrate 1 tab PO BID 12/22/20 Montelukast Sodium 1 tab PO DAILY 12/22/20 Semaglutide [Ozempic] 0.5 mg SQ Q7D 12/22/20 Tamsulosin [Flomax*] 1 tab PO BEDTIME 12/22/20 traMADol HCL [Ultram*] 1 tab PO QID PRN 12/22/20 Sulfamethoxazole/Trimethoprim [Bactrim Ds Tablet] 1 each PO BID #42 tablet 12/27/20 New Medications: Sulfamethoxazole/Trimethoprim [Bactrim Ds Tablet] 1 each PO BID #42 tablet Physician Discharge Instructions: Check CMP and CBC within 1 week. Please call result to Dr. Bonner. Diet: ADA Activity: Ad hector Followup: Gregory Bonner MD [Primary Care Provider] - Time spent managing pt's care (in minutes): 38
[2020-12-27] MEDS: TRAMADOL HCL 50 MG TAB PO PRN (11:18)
[2020-12-27] MEDS: CLOPIDOGREL 75 MG TABLET PO SCH (12:11)
--- NOTE | 2020-12-27 12:39 | P.PN ---
Subjective Date of Service: 12/27/20 Chief Complaint: Cellulitis, fever Patient seen examined at bedside, plan for DC today. Review of Systems 10-point ROS is otherwise unremarkable Physical Examination - Vital Signs Temperature: 98.1 F Blood Pressure: 146/75 Pulse: 75 Respirations: 16 Pulse Ox (%): 95 - Studies Temp Pulse Resp BP Pulse Ox 98.1 F 75 16 146/75 H 95 12/27/20 12:00 12/27/20 12:00 12/27/20 12:00 12/27/20 12:00 12/27/20 12:00 Active Medications Acetaminophen (Acetaminophen 500 Mg Tab) 500 mg PO Q4HP PRN PRN Reason: TEMP > 100' F Last Admin: 12/23/20 02:11 Dose: 500 mg Documented by: Amiodarone HCl (Amiodarone Hcl 200 Mg Tab) 200 mg PO DAILY [facility] Last Admin: 12/27/20 09:54 Dose: 200 mg Documented by: Clopidogrel Bisulfate (Clopidogrel 75 Mg Tablet) 75 mg PO NOON [facility] Last Admin: 12/27/20 12:11 Dose: 75 mg Documented by: Enalapril Maleate (Enalapril 10 Mg Tab) 20 mg PO DAILY [facility] Last Admin: 12/27/20 09:54 Dose: 20 mg Documented by: Enoxaparin Sodium (Enoxaparin 40 Mg/0.4 Ml) 40 mg SQ DAILY [facility] Last Admin: 12/27/20 09:00 Dose: 40 mg Documented by: Furosemide (Furosemide 40 Mg Tablet) 40 mg PO DAILY [facility] Last Admin: 12/27/20 09:54 Dose: 40 mg Documented by: Gabapentin (Gabapentin 300 Mg Cap) 300 mg PO TID [facility] Last Admin: 12/27/20 12:11 Dose: 300 mg Documented by: Levofloxacin/Dextrose (Levaquin 500 Mg/100 Ml Ivpb) 500 mg in 100 mls @ 100 mls/hr IV Q24H [facility]; Protocol Last Admin: 12/26/20 20:44 Dose: 100 mls Documented by: Insulin Human Regular (Insulin -Regular Human 50 Unit/0.5 Ml Ml) 0 unit SQ ACHS [facility]; Protocol Last Admin: 12/27/20 11:30 Dose: Not Given Documented by: Metformin HCl (Metformin Hcl 500 Mg Tab) 500 mg PO TIDWM [facility] Last Admin: 12/27/20 12:11 Dose: 500 mg Documented by: Metoprolol Tartrate (Metoprolol Tar 50 Mg Tab) 50 mg PO BID [facility] Last Admin: 12/27/20 09:55 Dose: 50 mg Documented by: Montelukast Sodium (Montelukast 10 Mg Tab) 10 mg PO DAILY [facility] Last Admin: 12/27/20 09:54 Dose: 10 mg Documented by: Morphine Sulfate (Morphine 2 Mg/Ml Syr) 2 mg IV Q4HP PRN PRN Reason: Pain scale 5-7 (Moderate) Last Admin: 12/27/20 09:53 Dose: 2 mg Documented by: Ondansetron HCl (Ondansetron 4 Mg/2 Ml Vial) 4 mg IV Q6HP PRN PRN Reason: NAUSEA / VOMITING Sodium Chloride (Flush Normal Saline 10 Ml) 10 ml IV BID [facility] Last Admin: 12/27/20 09:00 Dose: 10 ml Documented by: Tamsulosin HCl (Tamsulosin 0.4 Mg Sr Cap) 0.4 mg PO DAILY@1700 [facility] Last Admin: 12/26/20 16:57 Dose: 0.4 mg Documented by: Tramadol HCl (Tramadol Hcl 50 Mg Tab) 50 mg PO Q6HP PRN PRN Reason: Pain scale 2-4 (Mild) Last Admin: 12/27/20 11:18 Dose: 50 mg Documented by: Assessment And Plan - Plan General: Alert, In no apparent distress HEENT: Atraumatic, Normocephalic Neck: Supple, 2+ carotid pulse no bruit Respiratory: Clear to auscultation bilaterally, Normal air movement Cardiovascular: No edema, Normal pulses, Regular rate/rhythm Capillary refill: <2 Seconds Gastrointestinal: Normal bowel sounds, Soft and benign Musculoskeletal: No clubbing, No swelling Integumentary: Other (Right foot Charcot changes- selling and erythema noted to foot. No open wounds/ulcers.) Neurological: Normal speech, Normal strength at 5/5 x4 extr External genitalia: Deferred Rectal: Deferred Conclusions/Impression: Antibiotics: current: Levaquin start: 12/21 stop: 01/04 Assessment: -right foot charcot changes with cellulitis -diabetes mellitus type 2 -anemia and -leukocytosis Plan: -right foot but x-ray taken on 12/21 showed extensive bony fragmentation. MRI report showed: Right foot fracture dislocation changes are present as detailed associated with this neuropathic joint. The very extensive bone signal abnormality is nonspecific. The fracture dislocation neuropathic joint processes sufficient for creating this pattern of signal abnormality. Concurrent or superimposed osteomyelitis is certainly possible. Due to the fact this patient has no open wounds and extensiveness of the foot bony abnormalities, we will t reat for cellulitis with 2 weeks of Levaquin. Patient likely has charcot foot abnormalities, fractures, and cellulitis. Advised patient that if he spikes a fever or the erythema/swelling of the right foot worsens after patient has completed his oral antibiotic therapy that he should come back to the emergency department and be treated with 6 weeks of IV antibiotics for osteomyelitis. -repeat blood cultures taken on 12/19- negative. Discharge patient home on oral Bactrim for 3 weeks. -medical management per primary team -continue monitor CBC and BMP -continue to monitor for signs of infection Plan of care discussed with Dr. Guzman Thank you for consultation.
[2020-12-27 16:31] VITALS: BP 138/75; TEMP 97.9
--- NOTE | 2020-12-28 12:08 | EKG ---
Test Date: 2020-12-24 Test Time: 09:13:04 Circus Rider: ANNEL MEASUREMENT RESULTS: Intervals: Rate: 87 MI: 210 QRSD: 168 QT: 428 QTc: 515 [place]: P: 37 MI: 210 QRS: -87 T: 33 INTERPRETIVE STATEMENTS: Sinus rhythm with 1st degree AV block with premature supraventricular complexes and fusion complexes Left axis deviation Right bundle branch block Abnormal ECG Compared to ECG 12/23/2020 10:37:03 Atrial premature complex(es) now present Fusion complex(es) now present Left-axis deviation now present Electronically Signed On 12-28-20 11:55:30 CDT by Mauricio Guaman
== END 2020-12-27 17:03 | disposition home or self-care (01) | DRG 872 ==
LOC: ER 19:07 → ERHOLD 21:56 → 2ND 12-22 00:08
PROVIDERS: ADMIT Hospitalist; ATTEND Internal Medicine
DX: A41.01 Sepsis due to Methicillin susceptible Staphylococcus aureus (principal); L03.115 Cellulitis of right lower limb; E11.610 Type 2 diabetes mellitus with diabetic neuropathic arthropathy; I48.91 Unspecified atrial fibrillation; D64.9 Anemia, unspecified; I25.10 Atherosclerotic heart disease of native coronary artery without angina pectoris; I10 Essential (primary) hypertension; I45.10 Unspecified right bundle-branch block; G89.29 Other chronic pain; N40.0 Benign prostatic hyperplasia without lower urinary tract symptoms; E66.9 Obesity, unspecified; Z68.35 Body mass index [BMI] 35.0-35.9, adult; Z79.02 Long term (current) use of antithrombotics/antiplatelets; Z79.84 Long term (current) use of oral hypoglycemic drugs; Z79.899 Other long term (current) drug therapy; Z95.5 Presence of coronary angioplasty implant and graft; Z20.822 Contact with and (suspected) exposure to COVID-19
CPT/HCPCS: 36415; 80048; 80053; 80061; 80076; 80202; 81003; 81015; 82565; 82728; 82947; 83036; 83540; 83605; 83735; 84145; 84439; 84443; 84466; 84484; 85025; 85027; 85652; 86140; 87040; 87077; 87186; 87205; 93005; 93306; 93971; 96365; 96366; 96367; 99285; J1650; J2270; J3370; J7040; J7050; U0003

== ENCOUNTER 2023-10-09 12:38 | Observation (INO) | payer OTHER ==
[2023-10-09 13:57] LABS: Absolute Basophils 0.1 K/uL (0-0.5); Absolute Lymphocytes (CBC) 0.9 K/uL (0.7-4.9); Absolute Monocytes 1.1 K/uL (0.1-1.3); Basophils % 0.8 % (0-1.3); Eosinophils % 0.6 % (0-4.4); Hematocrit 36.3 % (39.6-49.0); Hemoglobin 12.2 g/dL (13.6-17.9); Lymphocytes % 11.5 % (15.3-44.8); MCH 30.6 pg (27.0-35.0); MCHC 33.6 g/dL (32.0-36.0); MCV 90.9 fL (80-100); MPV 10.1 fL (7.6-11.3); Monocytes % 13.9 % (3.3-12.3); Neutrophils % 73.2 % (41.7-73.7); Platelets 177 thou/uL (152-406); Red Cell Distribution Width 13.3 % (12.1-15.2)
[2023-10-09 14:11] LABS: Anion Gap 7.9 mEq/L (5.0-15.0); Potassium 3.9 mEq/L (3.5-5.1); Troponin High Sensitivity 12.2 pg/mL (<58.9)
--- NOTE | 2023-10-09 14:15 | EDPHYS ---
Physician Documentation [facility] Name: Tristin Mazariegos Age: 73 yrs Sex: Male : 1950 Arrival Date: 10/09/2023 Time: 12:38 Bed 5 Private MD: Alessio Espinoza ED Physician Rajiv Eugene HPI: 10/08 12:57 This 73 yrs old Male presents to ER via Ambulatory with complaints of ec2 Shortness Of Breath. 12:57 Patient arrives today for evaluation of shortness of breath. Patient with history of ec2 CHF, atrial fibrillation arrives today for worsening shortness of breath and lower extremity edema. Patient with Lasix use as well as amiodarone. Denies any chest pain reports difficulty breathing.. Historical: - Allergies: 12:49 No Known Allergies; ll1 - PMHx: 12:49 Hypercholesterolemia; Hypertensive disorder; Congestive heart failure; ll1 - PSHx: 12:49 foot SX; ll1 - Immunization history:: Adult Immunizations up to date. - Social history:: Smoking status: Patient/guardian denies using tobacco, the patient reports quitting approximately 16 years ago. ROS: 12:57 Constitutional: as per hpi ec2 Exam: 12:57 Constitutional: GEN: NAD Head: atraumatic Eyes: EOMI Ears: External ears are ec2 normal. CV: Tachycardia, 2+ bilateral lower extremity edema LUNGS: no respiratory distress, rales in the bilateral lower lung spears ABD: non-distended SKIN: no evidence of rashes MSK: no evidence of trauma NEURO: moves all extremities equally Vital Signs: 12:47 BP 138 / 97; Pulse 122; Resp 24; Temp 97.5; Pulse Ox 94% ; Weight 130.18 kg; Height 6 ll1 ft. 0 in. ; Pain 0/10; 13:49 BP 130 / 87; Pulse 99; Resp 23 S; Pulse Ox 94% on R/A; kc6 15:04 BP 115 / 86; Pulse 95; Resp 20 S; Pulse Ox 95% on R/A; kc6 16:54 BP 124 / 85; Pulse 107; Resp 20 S; Pulse Ox 95% on 2 lpm NC; kc6 12:47 Body Mass Index 38.92 (130.18 kg, 182.88 cm) ll1 12:47 Pain Scale: Adult ll1 MDM: 12:53 Patient medically screened. ec2 12:57 Data reviewed: vital signs. ED course: Patient arrives today for evaluation of ec2 shortness of breath. Examination remarkable for rales as noted above, pitting edema. Will obtain a cardiac evaluation. Considering ACS, doubt PE, highly suspicious for volume overload secondary to CHF. Patient does meet SIRS criteria with the tachycardia and tachypnea documented however suspect this is secondary to patient's volume overload as opposed to infectious process.. 13:46 ED course: EKG independently reviewed and interpreted by me, shows atrial fibrillation, ec2 rate of 116, no acute ST segment elevations, nonconcerning intervals, PVC noted. Will give the patient amiodarone that he is is already on this at home . 13:52 ED course: Vital signs with heart rates in the 90s to low 100s, given patient is under ec2 110, will defer amiodarone at this time.. ED course: Ultimately I suspect patient's volume overload is causing increased atrial stretch causing him to have this dysrhythmia as well as shortness of breath. Will continue to defer antibiotic therapy as I have a low index suspicion for infectious process.. 14:13 ED course: Metabolic profile reassuring. CBC with slight anemia noted, BNP elevated at ec2 3200, troponin within normal ranges. Chest x-ray independently reviewed and interpreted by me, shows cardiomegaly, right-sided pleural effusion as well as vascular congestion noted. Will admit for diuresis. Discussed case with hospitalist, pending admission. . 10/08 12:57 Order name: Basic Metabolic Panel; Complete Time: 14:12 ec2 10/08 12:57 Order name: CBC with Diff; Complete Time: 14:12 ec2 10/08 12:57 Order name: NT PRO-BNP; Complete Time: 14:12 ec2 10/08 12:57 Order name: Troponin HS; Complete Time: 14:12 ec2 10/08 15:55 Order name: CBC with Automated Diff EDMS 10/08 15:55 Order name: CBC with Automated Diff EDMS 10/08 15:55 Order name: Comprehensive Metabolic Panel EDNJ 10/08 15:55 Order name: Comprehensive Metabolic Panel EDNJ 10/08 15:55 Order name: Lipid Profile EDNJ 10/08 15:55 Order name: Lipid Profile EDNJ 10/08 15:55 Order name: Magnesium EDNJ 10/08 15:55 Order name: Magnesium EDNJ 10/08 15:55 Order name: NT PRO-BNP EDNJ 10/08 15:55 Order name: NT PRO-BNP EDNJ 10/08 15:55 Order name: Phosphorus EDNJ 10/08 15:55 Order name: Phosphorus EDNJ 10/08 15:55 Order name: Troponin High Sensitivity EDNJ 10/08 15:55 Order name: Troponin High Sensitivity EDNJ 10/08 15:55 Order name: Troponin High Sensitivity EDNJ 10/08 15:55 Order name: Troponin High Sensitivity EDNJ 10/08 12:57 Order name: XRAY Chest (1 view) ec2 10/08 15:55 Order name: Echo with Doppler EDNJ 10/08 12:57 Order name: EKG; Complete Time: 12:58 ec2 10/08 15:55 Order name: CONS Physician Consult EDNJ 10/08 12:57 Order name: Cardiac monitoring; Complete Time: 13:45 ec2 10/08 12:57 Order name: EKG - Nurse/Tech; Complete Time: 13:45 ec2 10/08 12:57 Order name: IV Saline Lock; Complete Time: 13:46 ec2 10/08 12:57 Order name: Labs collected and sent; Complete Time: 13:46 ec2 10/08 12:57 Order name: O2 Per Protocol; Complete Time: 13:46 ec2 10/08 12:57 Order name: O2 Sat Monitoring; Complete Time: 13:46 ec2 Administered Medications: 13:52 CANCELLED (Physician Discretion): [id number] mg IVP once ec2 14:46 Drug: Furosemide IVP 80 mg IVP once; give over 2 minutes Route: IVP; Site: right wrist; kc6 15:19 Follow up: Response: No adverse reaction kc6 20:56 CANCELLED (Patient not on unit.): [id number] mg PO once cp4 Disposition Summary: 10/09/23 14:15 Hospitalization Ordered Notes: Hospitalization Status: Inpatient Admission ec2 Provider: Cristina Bardales ec2 Condition: Stable ec2 Problem: an acute exacerbation ec2 Symptoms: are unchanged ec2 Bed/Room Type: Standard ec2 Location: Telemetry/MedSurg (Inpatient)(10/09/23 18:59) bc6 Room Assignment: 211(10/09/23 18:59) bc6 Diagnosis - Heart failure, unspecified ec2 Forms: - Medication Reconciliation Form ec2 - SBAR form ec2 - Leadership Thank You Letter ec2 Signatures: Dispatcher [employer] Tobias Sánchez RN RN ll1 Alla Romano RN RN kc6 Jackson Marc MD MD rt Balbina Yoon 6 Rajiv Eugene MD MD ec2 Abena Grijalva cp4 Corrections: (The following items were deleted from the chart) 13:52 13:51 amiodarone IVP 300 mg IVP once ordered. ec2 ec2 16:38 14:15 Telemetry/MedSurg (Inpatient) ec2 bc6 16:38 14:15 ec2 bc6 18:59 16:38 [facility] ER HOLD bc6 bc6 18:59 16:38 ERHOLD- 6 bc6 20:56 19:57 Gabapentin PO 600 mg PO once ordered. rt cp4
--- NOTE | 2023-10-09 14:15 | ER ---
Nurse's Notes [facility] Name: Tristin Mazariegos Age: 73 yrs Sex: Male : 1950 Arrival Date: 10/09/2023 Time: 12:38 Bed 5 Private MD: Alessio Espinoza Diagnosis: Heart failure, unspecified Presentation: 10/08 12:47 Chief complaint: Patient states: SOB with body swelling for 2-3 days. Sent by Your [address] for further evaluation. Coronavirus screen: Vaccine status: Patient reports receiving the 2nd dose of the covid vaccine. Client denies travel out of the [place] in the last 14 days. At this time, the client does not indicate any symptoms associated with coronavirus-19. Ebola Screen: Patient denies travel to an Ebola-affected area in the 21 days before illness onset. Initial Sepsis Screen: Does the patient meet any 2 criteria? HR > 90 bpm. No. Patient's initial sepsis screen is negative. Does the patient have a suspected source of infection? No. Patient's initial sepsis screen is negative. Risk Assessment: Do you want to hurt yourself or someone else? Patient reports no desire to harm self or others. Onset of symptoms was October 07, 2023. 12:47 Method Of Arrival: Ambulatory [facility] 12:47 Acuity: RANDOLPH [address] [facility] Triage Assessment: 12:50 General: Appears uncomfortable, Behavior is calm, cooperative, appropriate for age. ll1 General: Reports fatigue for. Pain: Denies pain. Respiratory: Reports shortness of breath labored breathing Onset: The symptoms/episode began/occurred yesterday, the patient has moderate shortness of breath. Historical: - Allergies: 12:49 No Known Allergies; ll1 - PMHx: 12:49 Hypercholesterolemia; Hypertensive disorder; Congestive heart failure; 1 - PSHx: 12:49 foot SX; ll1 - Immunization history:: Adult Immunizations up to date. - Social history:: Smoking status: Patient/guardian denies using tobacco, the patient reports quitting approximately 16 years ago. Screenin:47 [facility] ED Fall Risk Assessment (Adult) History of falling in the last 3 months, kc6 including since admission No falls in past 3 months (0 pts) Confusion or Disorientation No (0 pts) Intoxicated or Sedated No (0 pts) Impaired Gait No (0 pts) Mobility Assist Device Used Yes (1 pt) Altered Elimination No (0 pt) Score/Fall Risk Level 0 - 2 = Low Risk. Abuse screen: Denies threats or abuse. Denies injuries from another. Nutritional screening: No deficits noted. Tuberculosis screening: No symptoms or risk factors identified. Assessment: 13:47 General: Appears in no apparent distress. comfortable, obese, well groomed, well kc6 developed, Behavior is calm, cooperative, appropriate for age. Pain: Denies pain. Neuro: Level of Consciousness is awake, alert, obeys commands, Oriented to person, place, time, situation, Appropriate for age. Cardiovascular: Denies chest pain, Heart tones S1 S2 present Capillary refill < 3 seconds Rhythm is atrial fibrillation. Respiratory: Airway is patent Trachea midline Respiratory effort is even, labored, Respiratory pattern is symmetrical, tachypnea. GI: No signs and/or symptoms were reported involving the gastrointestinal system. : No signs and/or symptoms were reported regarding the genitourinary system. EENT: No signs and/or symptoms were reported regarding the EENT system. Derm: No signs and/or symptoms reported regarding the dermatologic system. Skin is intact, is healthy with good turgor, Skin is pink, warm \T\ dry. Musculoskeletal: No signs and/or symptoms reported regarding the musculoskeletal system. Circulation, motion, and sensation intact. Capillary refill < 3 seconds, Range of motion: intact in all extremities. 14:47 Reassessment: Patient appears in no apparent distress at this time. No changes from kc6 previously documented assessment. Patient and/or family updated on plan of care and expected duration. Pain level reassessed. Patient is alert, oriented x 3, equal unlabored respirations, skin warm/dry/pink. 15:47 Reassessment: Patient appears in no apparent distress at this time. No changes from kc6 previously documented assessment. Patient and/or family updated on plan of care and expected duration. Pain level reassessed. Patient is alert, oriented x 3, equal unlabored respirations, skin warm/dry/pink. 16:47 Reassessment: Patient appears in no apparent distress at this time. No changes from kc6 previously documented assessment. Patient and/or family updated on plan of care and expected duration. Pain level reassessed. Patient is alert, oriented x 3, equal unlabored respirations, skin warm/dry/pink. 19:39 Respiratory: Breath sounds with rales bilaterally. cp4 Vital Signs: 12:47 BP 138 / 97; Pulse 122; Resp 24; Temp 97.5; Pulse Ox 94% ; Weight 130.18 kg; Height 6 ll1 ft. 0 in. ; Pain 0/10; 13:49 BP 130 / 87; Pulse 99; Resp 23 S; Pulse Ox 94% on R/A; kc6 15:04 BP 115 / 86; Pulse 95; Resp 20 S; Pulse Ox 95% on R/A; kc6 16:54 BP 124 / 85; Pulse 107; Resp 20 S; Pulse Ox 95% on 2 lpm NC; kc6 12:47 Body Mass Index 38.92 (130.18 kg, 182.88 cm) ll1 12:47 Pain Scale: Adult ll1 ED Course: 12:39 Patient arrived in ED. rg4 12:40 Alessio Espinoza DO is Private Physician. rg4 12:48 Triage completed. ll1 12:50 Arm band placed on. ll1 12:52 Rajiv Eugene MD is Attending Physician. ec2 13:33 Patient placed in an exam room, on a stretcher. ll1 13:45 EKG done, by ED staff. aw1 13:46 Alla Romano, UGO is Primary Nurse. kc6 13:47 Patient has correct armband on for positive identification. Placed in gown. Bed in low kc6 position. Call light in reach. Side rails up X2. Adult w/ patient. Client placed on continuous cardiac and pulse oximetry monitoring. NIBP monitoring applied. surveillance system monitor on. 13:47 Inserted saline lock: 18 gauge in right wrist, using aseptic technique. Blood collected.kc6 14:13 XRAY Chest (1 view) In Process Unspecified. EDMS 14:14 Cristina Bardales MD is Hospitalizing Provider. ec2 16:54 No provider procedures requiring assistance completed. Patient admitted, IV remains in kc6 place. 19:39 Provided Education on: admission. cp4 Administered Medications: 13:52 CANCELLED (Physician Discretion): [id number] mg IVP once ec2 14:46 Drug: Furosemide IVP 80 mg IVP once; give over 2 minutes Route: IVP; Site: right wrist; kc6 15:19 Follow up: Response: No adverse reaction kc6 20:56 CANCELLED (Patient not on unit.): [id number] mg PO once cp4 Medication: 16:54 VIS not applicable for this client. kc6 Outcome: 14:15 Decision to Hospitalize by Provider. ec2 16:54 Admitted to ER Hold. Please see [facility] for further documentation. kc6 16:54 Condition: good 16:54 Instructed on the need for admit, 20:59 Patient left the ED. cp4 Signatures: Dispatcher [employer] Imani Monroy rg4 Tobias Peterson RN RN ll1 Alla Romano RN RN kc6 Alicia Wood aw1 Rajiv Eugene MD MD ec2 Abena Grijalva cp4 Corrections: (The following items were deleted from the chart) 13:47 13:47 Patient maintains SpO2 saturation greater than 95% on room air. kc6 kc6 13:47 13:47 [facility] ED Fall Risk Assessment (Adult) History of falling in the last 3 months, kc6 including since admission No falls in past 3 months (0 pts) Confusion or Disorientation No (0 pts) Intoxicated or Sedated No (0 pts) Impaired Gait No (0 pts) Mobility Assist Device Used No (0 pt) Altered Elimination No (0 pt) Score/Fall Risk Level 0 - 2 = Low Risk kc6
[2023-10-09] MEDS ORDERED: FUROSEMIDE 40 MG/4 ML VIAL ONE (14:37)
--- NOTE | 2023-10-09 15:22 | RAD REPORT ---
EXAM DESCRIPTION: ROLANDOChest Single View10/09/2023 2:11 pm CLINICAL HISTORY: DYSPNEA COMPARISON: RAD CHEST PA AND LAT (2 VIEWS) dated 09/08/2012 TECHNIQUE: Portable AP view of the chest. FINDINGS: Small bilateral layering pleural effusions, with underlying subsegmental airspace opacitie s, could relate to atelectasis. Mild central interstitial prominence. No pneumothorax scratched. Mil d cardiomegaly. Mediastinal contours are unremarkable. IMPRESSION: Findings suggesting mild pulmonary edema, which could be of cardiogenic origin.
--- NOTE | 2023-10-09 15:47 | P.HP ---
Certification for Inpatient Patient admitted to: Inpatient With expected LOS: >2 Midnights Patient will require the following post-hospital care: None Practitioner: I am a practitioner with admitting privileges, knowledge of patient current condition, hospital course, and medical plan of care. Services: Services provided to patient in accordance with Admission requirements found in Title 42 Section 412.3 of the Code of Federal Regulations Patient History Date of Service: 10/09/23 Reason for admission: Acute CHF exacerbation/shortness of breath History of Present Illness: Patient is a 73-year-old gentleman who comes into the ER complaining of shortness of breath. Patient states he has been taking antibiotic for urinary tract infection. He stopped making urine so he lost his breath and came into the emergency room for further evaluation. In the ER patient was worked up and his BNP was elevated and his chest x-ray showed pulmonary edema. Patient was given IV diuretics. Patient had about 1000 cc of urine output and he is feeling a whole lot better. Patient has a history of congestive heart failure and COPD. He has a greater than [id number] smoking history. He quit smoking about 8 years ago. He also has morbid obesity but he has been on Ozempic and Mounjaro. He has had about a 15 pound weight loss, but he remains morbidly obese. Patient also has a diabetes with diabetic neuropathy. At this time, patient will be admitted to the hospital for further workup of his congestive heart failure. He follows up with mental health professional in [place], [place]. Patient has had cardiac workup done 2 to 3 months ago which she states was unremarkable. Patient will be admitted for inpatient hospitalization. Allergies No Known Allergies Allergy (Verified 12/22/20 00:32) Home Medications: Amiodarone HCl [Pacerone] 1 tab PO DAILY 12/22/20 Clopidogrel Bisulfate [Plavix] 75 mg PO NOON 12/22/20 Enalapril [Vasotec*] 20 mg PO DAILY 12/22/20 Furosemide 1 tab PO DAILY 12/22/20 Gabapentin 1 tab PO TID 12/22/20 Metformin HCl 1 tab PO TID 12/22/20 Metoprolol Tartrate 1 tab PO BID 12/22/20 Montelukast Sodium 1 tab PO DAILY 12/22/20 Semaglutide [Ozempic] 0.5 mg SQ Q7D 12/22/20 Tamsulosin [Flomax*] 1 tab PO BEDTIME 12/22/20 traMADol HCL [Ultram*] 1 tab PO QID PRN 12/22/20 Sulfamethoxazole/Trimethoprim [Bactrim Ds Tablet] 1 each PO BID #42 tablet 12/27/20 - Past Medical/Surgical History Diabetic: Yes -: NIDDM -: Atrial fibrillation -: Hypertension -: BPH -: Diabetic neuropathy -: Charcot right foot -: CAD -: Chronic pain -: Heart stent -: Right foot surgery -: Basal cell carcinoma nose -: Left leg surgery Psychosocial/ Personal History: Patient is retired, lives at home with his - Family History Mother Medical History: Heart disease, Diabetes, Cancer Notes: Brother Medical History: Heart disease, Diabetes - Social History Smoking Status: Former smoker Alcohol use: No CD- Drugs: No Caffeine use: No Review of Systems 10-point ROS is otherwise unremarkable Physical Examination - Vital Signs Temperature: 98 F Blood Pressure: 150/80 Pulse: 80 Respirations: 18 Pulse Ox (%): 95 - Physical Exam General: Alert, In no apparent distress, Oriented x3 HEENT: Atraumatic, PERRLA, Mucous membr. moist/pink, EOMI, Sclerae nonicteric Neck: Supple, 2+ carotid pulse no bruit, No LAD, Without JVD or thyroid abnormality Respiratory: Diminished, Crackles/rales Cardiovascular: Regular rate/rhythm, Normal S1 S2, Systolic murmur Gastrointestinal: Normal bowel sounds, Soft and benign, Non-distended, No tenderness Musculoskeletal: No clubbing, No swelling, No tenderness Integumentary: No rashes Neurological: Normal gait, Normal speech, Normal strength at 5/5 x4 extr, Normal tone, Sensation intact, Cranial nerves 3-12 intact, Normal affect Lymphatics: No axilla or inguinal lymphadenopathy - Studies Laboratory Data (last 24 hrs) 10/09/23 10/09/23 13:44 13:44 WBC 8.20 Hgb 12.2 L Hct 36.3 L Plt Count 177 Sodium 139 Potassium 3.9 BUN 15 Creatinine 1.01 Glucose 100 Assessment & Plan - Problems (Diagnosis) (1) Acute exacerbation of CHF (congestive heart failure) Current Visit: Yes Status: Acute (2) Uncontrolled hypertension Current Visit: Yes Status: Acute (3) Urinary tract infection Current Visit: Yes Status: Acute (4) Charcot foot due to diabetes mellitus Current Visit: No Status: Acute (5) Diabetes mellitus type 2 in obese Current Visit: No Status: Acute (6) BPH (benign prostatic hyperplasia) Current Visit: Yes Status: Acute - Plan PLAN: 1. Echocardiogram pending 2. Continue with antihypertensives 3. Resume beta-estrella therapy in 48 hours 4. Cardiology consultation 5. Aggressive diuresis 6. Strict I's and O's 7. Repeat CXR 8. Daily weights 9. Continue with IV antibiotics 10. Resume tamsulosin 11. Education regarding diet and treatment of congestive heart failure Discharge Plan: Home Plan to discharge in: Greater than 2 days - Advance Directives Does patient have a Living Will: No Does patient have a Durable POA for Healthcare: No - Code Status/Comfort Care Code Status Assessed: Yes Code Status: Full Code Critical Care: No Time Spent Managing PTS Care (In Minutes): 45
[2023-10-09] MEDS ORDERED: ALBUTEROL 2.5 MG/3 ML NEB SOL NEB PRN (15:48)
[2023-10-09] MEDS ORDERED: ONDANSETRON 4 MG/2 ML VIAL IV PRN (15:48)
[2023-10-09] MEDS ORDERED: ACETAMINOPHEN 500 MG TAB PO PRN (15:48)
[2023-10-09] MEDS ORDERED: IPRATROPIUM BROM 0.5MG/2.5ML NEB PRN (15:48)
[2023-10-09] MEDS: ENOXAPARIN 40 MG/0.4 ML SQ SCH (17:00)
[2023-10-09] MEDS: FUROSEMIDE 40 MG/4 ML VIAL IV SCH (17:00)
[2023-10-09] MEDS: VANCOMYCIN 2 GM in NA CHLORIDE 0.9% 500 ML IVPB SCH (17:00)
[2023-10-09] MEDS ORDERED: ENOXAPARIN 40 MG/0.4 ML SQ ONE (17:21)
[2023-10-09] MEDS: POTASSIUM 25 MEQ EFFERV TAB PO SCH ×2 (21:00→23:11)
[2023-10-09] MEDS ORDERED: TRAMADOL HCL 50 MG TAB PO PRN (22:12)
[2023-10-09 22:40] VITALS: BMI 38.2
[2023-10-09] MEDS: ATORVASTATIN 40 MG TAB PO SCH (23:11)
[2023-10-09] MEDS: METOPROLOL TAR 50 MG TAB PO SCH (23:12)
[2023-10-09] MEDS: GABAPENTIN 300 MG CAP PO SCH (23:12)
[2023-10-10 04:30] LABS: Absolute Basophils 0.1 K/uL (0-0.5); Absolute Eosinophils 0.1 K/uL (0-0.5); Absolute Lymphocytes (CBC) 0.8 K/uL (0.7-4.9); Absolute Monocytes 1.3 K/uL (0.1-1.3); Absolute Neutrophil 6.3 K/uL (1.8-8.0); Basophils % 0.7 % (0-1.3); Eosinophils % 0.9 % (0-4.4); Hematocrit 35.9 % (39.6-49.0); Hemoglobin 12.3 g/dL (13.6-17.9); Lymphocytes % 9.7 % (15.3-44.8); MCHC 34.2 g/dL (32.0-36.0); MCV 90.7 fL (80-100); MPV 9.8 fL (7.6-11.3); Monocytes % 14.8 % (3.3-12.3); Neutrophils % 73.9 % (41.7-73.7); Platelets 170 thou/uL (152-406); RBC Red Blood Cell Count 3.96 M/uL (4.33-5.43); Red Cell Distribution Width 13.3 % (12.1-15.2)
[2023-10-10 04:55] LABS: Albumin 3.1 g/dL (3.4-5.0); Albumin/Globulin Ratio 0.9 (1.1-1.8); Anion Gap 5.6 mEq/L (5.0-15.0); Bilirubin Total 0.5 mg/dL (0.2-1.0); Globulin 3.5 g/dL (2.3-3.5); Phosphorus 3.4 mg/dL (2.5-4.9); Potassium 4.6 mEq/L (3.5-5.1); Protein, Total 6.6 g/dL (6.4-8.2)
[2023-10-10] MEDS ORDERED: GABAPENTIN 300 MG CAP PO SCH (08:00)
[2023-10-10] MEDS: lisinopriL 10 MG TAB PO SCH (08:46)
[2023-10-10] MEDS: FUROSEMIDE 40 MG/4 ML VIAL IV SCH (08:46)
[2023-10-10] MEDS: ASPIRIN EC 81 MG TAB PO SCH (08:47)
[2023-10-10] MEDS: AMIODARONE HCL 200 MG TAB PO SCH (08:47)
--- NOTE | 2023-10-10 08:50 | P.PN ---
Subjective Date of Service: 10/10/23 Chief Complaint: Acute CHF exacerbation/shortness of breath Subjective: Improving <Pauline Alejandre - Last Filed: 10/10/23 08:51> Date of Service: 10/10/23 <Cristina Bardales - Last Filed: 10/11/23 00:39> Review of Systems 10-point ROS is otherwise unremarkable General: Unremarkable Respiratory: Shortness of Breath Cardiovascular: As per HPI Genitourinary: Dysuria, Other (states + UTI infection symptoms, has been on antibiotics.) <Pauline Alejandre - Last Filed: 10/10/23 08:51> Physical Examination - Vital Signs Temperature: 98.1 F Blood Pressure: 156/86 Pulse: 109 Respirations: 18 Pulse Ox (%): 100 - Physical Exam General: Alert, In no apparent distress, Oriented x3 HEENT: Atraumatic, Normocephalic Neck: Supple Respiratory: Normal air movement Cardiovascular: No edema, Irregular heart rate/rhythm, Systolic murmur Capillary refill: <2 Seconds Gastrointestinal: Soft and benign Musculoskeletal: No clubbing Integumentary: No rashes Neurological: Normal speech, Normal tone Lymphatics: No axilla or inguinal lymphadenopathy External genitalia: Deferred Rectal: Deferred - Studies Laboratory Data (last 24 hrs) 10/09/23 10/09/23 13:44 13:44 WBC 8.20 Hgb 12.2 L Hct 36.3 L Plt Count 177 Sodium 139 Potassium 3.9 BUN 15 Creatinine 1.01 Glucose 100 <Pauline Alejandre - Last Filed: 10/10/23 08:51> Assessment And Plan - Plan Assessment & Plan - Problems (Diagnosis) (1) Acute exacerbation of CHF (congestive heart failure) Current Visit: Yes Status: Acute (2) Uncontrolled hypertension Current Visit: Yes Status: Acute (3) Urinary tract infection Current Visit: Yes Status: Acute (4) Charcot foot due to diabetes mellitus Current Visit: No Status: Acute (5) Diabetes mellitus type 2 in obese Current Visit: No Status: Acute (6) BPH (benign prostatic hyperplasia) Current Visit: Yes Status: Acute - Plan PLAN: 1. Echocardiogram pending - pt refused 2. Continue with antihypertensives - pt does not want diltiazem 3. Resume beta-estrella therapy in 48 hours 4. Cardiology consultation - pt refused, states he sees Dr. Griffin regularly 5. Aggressive diuresis 6. Strict I's and O's 7. Repeat CXR 8. Daily weights 9. Continue with IV antibiotics - spouse states [facility] called in Bactrim for pt based on culture sensitivity, to stop Cefpodoxime 10. Resume tamsulosin 11. Education regarding diet and treatment of congestive heart failure Discharge Plan: Home Plan to discharge in: Greater than 2 days Discharge Plan: Home Plan to discharge in: 24 Hours <Pauline Alejandre - Last Filed: 10/10/23 08:51> - Current Problems (Diagnosis) (1) Acute exacerbation of CHF (congestive heart failure) Status: Acute (2) Uncontrolled hypertension Status: Acute (3) Urinary tract infection Status: Acute (4) Charcot foot due to diabetes mellitus Status: Acute (5) Diabetes mellitus type 2 in obese Status: Acute (6) BPH (benign prostatic hyperplasia) Status: Acute <Cristina Bardales - Last Filed: 10/11/23 00:39> Date of Service: 10/10/23 See DC summary <Cristina Bardales - Last Filed: 10/11/23 00:39>
[2023-10-10] MEDS ORDERED: METOPROLOL TAR 50 MG TAB PO SCH (09:00)
[2023-10-10] MEDS ORDERED: APIXABAN 5 MG TABLET PO SCH (09:00)
[2023-10-10] MEDS ORDERED: FUROSEMIDE 40 MG TABLET PO SCH (09:00)
[2023-10-10] MEDS ORDERED: AMIODARONE HCL 200 MG TAB PO SCH (09:00)
[2023-10-10 09:17] VITALS: O2SAT 100
[2023-10-10] MEDS: VALSARTAN 160 MG TAB PO SCH (10:20)
[2023-10-10 12:13] VITALS: BP 131/72; TEMP 98.4
[2023-10-10] MEDS ORDERED: TAMSULOSIN 0.4 MG SR CAP PO SCH (17:00)
[2023-10-10] MEDS ORDERED: ATORVASTATIN 40 MG TAB PO SCH (21:00)
--- NOTE | 2023-10-11 00:40 | P.DS ---
Discharge Date: 10/10/23 Disposition: ROUTINE DISCHARGE Discharge Condition: GOOD Reason for Admission: Acute CHF exacerbation/shortness of breath - Problems (1) Acute exacerbation of CHF (congestive heart failure) Status: Acute (2) Uncontrolled hypertension Status: Acute (3) Urinary tract infection Status: Acute (4) Charcot foot due to diabetes mellitus Status: Acute (5) Diabetes mellitus type 2 in obese Status: Acute (6) BPH (benign prostatic hyperplasia) Status: Acute Brief History of Present Illness: Patient is a 73-year-old gentleman who comes into the ER complaining of shortness of breath. Patient states he has been taking antibiotic for urinary tract infection. He stopped making urine so he lost his breath and came into the emergency room for further evaluation. In the ER patient was worked up and his BNP was elevated and his chest x-ray showed pulmonary edema. Patient was given IV diuretics. Patient had about 1000 cc of urine output and he is feeling a whole lot better. Patient has a history of congestive heart failure and COPD. He has a greater than [id number] smoking history. He quit smoking about 8 years ago. He also has morbid obesity but he has been on Ozempic and Mounjaro. He has had about a 15 pound weight loss, but he remains morbidly obese. Patient also has a diabetes with diabetic neuropathy. At this time, patient will be admitted to the hospital for further workup of his congestive heart failure. He follows up with resin filterer in [place], [place]. Patient has had cardiac workup done 2 to 3 months ago which she states was unremarkable. Patient will be admitted for inpatient hospitalization. Hospital Course: Patient has done well during hospitalization. Patient's heart failure is compensated. Patient clinically doing well and patient will continue with outpatient follow-up. Patient was taken a cephalosporin for antibiotics and I reviewed her cultures from [facility] which grew out Klebsiella which is sensitive to her current antibiotic which he needs to continue. I advised her not to take Bactrim. Continue with Lasix as scheduled and monitor daily weights and if greater than 5 lb weight gain to take an extra diuretic as long as the blood pressure is greater than 130 systolic Sada. I gave him a number to contact me if any questions and to continue with outpatient follow-up with her resin filterer and PCP. Vital Signs/Physical Exam: Temp Pulse Resp BP Pulse Ox 98.4 F 88 16 131/72 91 10/10/23 11:00 10/10/23 11:00 10/10/23 11:00 10/10/23 11:00 10/10/23 11:00 General: Alert, In no apparent distress, Oriented x3 Laboratory Data at Discharge: WBC 8.50 thou/uL (4.3-10.9) 10/10/23 03:50 Hgb 12.3 g/dL (13.6-17.9) L 10/10/23 03:50 Hct 35.9 % (39.6-49.0) L 10/10/23 03:50 Plt Count 170 thou/uL (152-406) 10/10/23 03:50 Sodium 141 mEq/L (136-145) 10/10/23 03:50 Potassium 4.6 mEq/L (3.5-5.1) D 10/10/23 03:50 BUN 16 mg/dL (7-18) 10/10/23 03:50 Creatinine 1.03 mg/dL (0.70-1.30) 10/10/23 03:50 Glucose 119 mg/dL (74-106) H 10/10/23 03:50 Phosphorus 3.4 mg/dL (2.5-4.9) 10/10/23 03:50 Magnesium 2.0 mg/dL (1.6-2.4) 10/10/23 03:50 Total Bilirubin 0.5 mg/dL (0.2-1.0) 10/10/23 03:50 AST 43 U/L (15-37) H 10/10/23 03:50 ALT 43 U/L (16-61) 10/10/23 03:50 Alkaline Phosphatase 79 U/L (45-117) 10/10/23 03:50 Triglycerides 68 mg/dL (<150) 10/10/23 03:50 Cholesterol 71 mg/dL (<200) 10/10/23 03:50 HDL Cholesterol 36 mg/dL (40-60) L 10/10/23 03:50 Cholesterol/HDL Ratio 1.97 10/10/23 03:50 Home Medications: Amiodarone HCl [Pacerone] 1 tab PO DAILY 12/22/20 Furosemide 1 tab PO BID 12/22/20 Gabapentin 1 tab PO TID 12/22/20 Metformin HCl 1 tab PO TID 12/22/20 Metoprolol Tartrate 1 tab PO BID 12/22/20 Montelukast Sodium 1 tab PO DAILY 12/22/20 Tamsulosin [Flomax*] 1 tab PO BEDTIME 12/22/20 traMADol HCL [Ultram*] 1 tab PO QID PRN 12/22/20 Amiodarone HCl [Cordarone*] 200 mg PO DAILY 10/09/23 Apixaban [Eliquis] 5 mg PO BID 10/09/23 Atorvastatin Calcium [Lipitor] 40 mg PO BEDTIME 10/09/23 Tirzepatide [Mounjaro] 7.5 mg SQ SEECOM 10/09/23 Valsartan [Diovan] 320 mg PO DAILY 10/09/23 Cefdinir [Cefdinir*] 300 mg PO BID #14 cap 10/10/23 Ipratropium Neb [Atrovent*] 0.5 mg IH Q8HP PRN #60 amp 10/10/23 Levalbuterol [Xopenex*] 1 puff NEB Q8HP PRN #60 amp 10/10/23 Nebulizer 1 each MC DAILY #1 ea 10/10/23 Nebulizer Accessories [Aeroneb Go] 1 each MC DAILY #1 ea 10/10/23 predniSONE [Deltasone] 20 mg PO DAILY #5 tab 10/10/23 New Medications: Nebulizer Accessories [Aeroneb Go] 1 each MC DAILY #1 ea Ipratropium Neb [Atrovent*] 0.5 mg IH Q8HP PRN #60 amp PRN Reason: Shortness Of Breath Cefdinir [Cefdinir*] 300 mg PO BID #14 cap Nebulizer 1 each MC DAILY #1 ea predniSONE [Deltasone] 20 mg PO DAILY #5 tab Levalbuterol [Xopenex*] 1 puff NEB Q8HP PRN #60 amp PRN Reason: Shortness Of Breath Physician Discharge Instructions: -DC IV and DC home -Follow-up with PCP in 1 to 2 weeks -Follow-up with Cardiology in 1 to 2 weeks -Please call Dr. Bardales at [phone] if any questions regarding hospital stay -Please call nursing station at [phone] if any nursing or medication questions -Return to the emergency room if symptoms worsen Diet: AHA Activity: Fall precautions Followup: Alessio Espinoza DO [Primary Care Provider] - Edwin Andrew MD [ACTIVE - CAN ADMIT] - Time spent managing pt's care (in minutes): 35
--- NOTE | 2023-10-11 07:05 | ECHO ---
HEIGHT: 6 ft 0 in WEIGHT: 281 lb 8 oz DATE OF STUDY: 10/10/[address]: Cristina Bardales MD 2-DIMENSIONAL: YES M.MODE: YES DOPPLER: YES COLOR FLOW: YES TDS: YES PORTABLE: YES DEFINITY: BUBBLE STUDY: DIAGNOSIS: CONGESTIVE HEART FAILURE CARDIAC HISTORY: CATHERIZATION: YES SURGERY: NO PROSTHETIC VALVE: NO PACEMAKER: NO MEASUREMENTS (cm) DIASTOLIC (NORMALS) SYSTOLIC (NORMALS) IVSd 1.3 (0.6-1.2) LA Diam 4.4 (1.9-4.0) LVEF 57% LVIDd 5.8 (3.5-5.7) LVIDs 4.0 (2.0-3.5) %FS 30% LVPWd 1.3 (0.6-1.2) Ao Diam 2.7 (2.0-3.7) 2 DIMENSIONAL ASSESSMENT: RIGHT ATRIUM: NORMAL LEFT ATRIUM: NORMAL RIGHT VENTRICLE: NORMAL LEFT VENTRICLE: NORMAL TRICUSPID VALVE: MILD TRICUSPID REGURGITATION MITRAL VALVE: TRACE MITRAL REGURGITATION PULMONIC VALVE: NORMAL AORTIC VALVE: CALCIFIED PERICARDIAL EFFUSION: NONE AORTIC ROOT: NORMAL LEFT VENTRICULAR WALL MOTION: NORMAL DOPPLER/COLOR FLOW: GRADE II DIASTOLIC DYSFUNCTION, VOLUME OVERLOAD COMMENTS: 1. NORMAL LEFT VENTRICULAR SYSTOLIC FUNCTION, EJECTION FRACTION 55-60%, NORMAL WALL MOTION 2. GRADE II DIASTOLIC DYSFUNCTION, ELEVATED FILLING PRESSURE 3. RIGHT VENTRICULAR SYSTOLIC PRESSURE 45-50 mmHg TECHNOLOGIST: BEREKET VITAL
--- NOTE | 2023-10-11 17:29 | EKG ---
Test Date: 2023-10-09 Test Time: 12:40:52 Gum Scoring Machine Operator: ACE MEASUREMENT RESULTS: Intervals: Rate: 116 [place]: QRSD: 162 QT: 384 QTc: 533 [place]: P: [place]: QRS: -84 T: 50 INTERPRETIVE STATEMENTS: Atrial fibrillation with premature ventricular or aberrantly conducted complexes Left axis deviation Right bundle branch block Inferior infarct, age undetermined Abnormal ECG Compared to ECG 12/24/2020 09:13:04 Ventricular premature complex(es) now present Myocardial infarct finding now present Sinus rhythm no longer present Atrial premature complex(es) no longer present Fusion complex(es) no longer present First degree AV block no longer present Electronically Signed On 10-11-23 17:23:29 CDT by Edwin Andrew
== END 2023-10-10 17:20 | disposition home or self-care (01) ==
LOC: ER 12:38 → ERHOLD 15:48 → INTOOBSV 15:48 → 2ND 20:10
PROVIDERS: ADMIT Hospitalist; ATTEND Hospitalist
DX: I50.9 Heart failure, unspecified (principal); N39.0 Urinary tract infection, site not specified; I10 Essential (primary) hypertension; E11.610 Type 2 diabetes mellitus with diabetic neuropathic arthropathy; N40.0 Benign prostatic hyperplasia without lower urinary tract symptoms; E66.9 Obesity, unspecified; Z68.38 Body mass index [BMI] 38.0-38.9, adult
CPT/HCPCS: 36415; 71045; 80048; 80053; 80061; 82947; 83735; 83880; 84100; 84484; 85025; 93005; 93306; 96374; 99285; J1650; J1940; J7040

== ENCOUNTER 2025-02-09 18:19 | Inpatient (IN) | payer OTHER ==
[2025-02-09 19:02] LABS: Absolute Lymphocytes (CBC) 0.3 K/uL (0.7-4.9); Hematocrit 26.1 % (39.6-49.0); Hemoglobin 8.2 g/dL (13.6-17.9); MCH 27.3 pg (27.0-35.0); MCHC 31.3 g/dL (32.0-36.0); MCV 87.1 fL (80-100); MPV 8.5 fL (7.6-11.3); Nucleated RBC Absolute Count 0.0 (0-0); Nucleated Red Blood Cells % 0.0 % (0-0); RBC Red Blood Cell Count 3.00 M/uL (4.33-5.43); White Blood Count 11.70 thou/uL (4.3-10.9)
[2025-02-09 19:37] LABS: ALT/SGPT 35.0 U/L (16-61); AST/SGOT 94.0 U/L (15-37); Albumin 2.3 g/dL (3.4-5.0); Albumin/Globulin Ratio 0.5 (1.1-1.8); Alkaline Phosphatase 573.0 U/L (45-117); Anion Gap 11.6 mEq/L (5.0-15.0); BUN Blood Urea Nitrogen 75.0 mg/dL (7-18); Bilirubin Indirect, Calculated 0.3 mg/dL (0.2-0.8); Globulin 4.5 g/dL (2.3-3.5); Glucose Level 217.0 mg/dL (74-106); Magnesium 1.9 mg/dL (1.6-2.4); Potassium 4.6 mEq/L (3.5-5.1); Troponin High Sensitivity 35.5 pg/mL (<58.9)
[2025-02-09] MEDS ORDERED: WATER FOR INJ,STERILE 10 ML ONE (20:14)
[2025-02-09] MEDS ORDERED: ZIPRASIDONE MESYLA 20 MG/VIAL IM ONE (20:14)
--- NOTE | 2025-02-09 21:47 | RAD REPORT ---
EXAM: CT CHEST, ABDOMEN AND PELVIS WITHOUT CONTRAST CLINICAL INDICATION: Male, 74 years old. [facility] MAIN dyspnea, abdominal distention Bed Name: 4 TECHNIQUE: CT chest, abdomen and pelvis was performed, without IV contrast, as per department protoco l. Axial, sagittal and coronal reconstructions were obtained. One or more of the following dose reduction techniques were used: Automated exposure control, adjustment of the mA and/or kV according to the patient size, and/or iterative reconstruction. Unless otherwise specified, incidental findings do not require dedicated imaging follow-up. COMPARISON: 01/06/2025 FINDINGS: The lack of intravenous contrast limits the sensitivity of this exam for evaluation of solid visceral organs, vascular structures, and retroperitoneum. Chest: LOWER NECK/CHEST WALL: Visualized thyroid gland and soft tissues are normal. LUNGS AND AIRWAYS: Airways are clear. Dependent airspace opacities particularly in the right lung inv olving most of the right lower lobe, progressive, favoring atelectasis. Calcified ovoid right lower lobe 1.8 cm nodule, stable. Multiple left upper lung nodules largest measuring 11 mm within the upper lobe posteriorly on axial image 25. Some of the nodules are obscured by ongoing atelectasis and by motion artifact. PLEURA: Progressive moderate to large right pleural effusion. Trace left effusion perhaps mildly impr rakesh. No pneumothorax. Hemidiaphragms are normally positioned. MEDIASTINUM AND LYMPH NODES: Moderate to marked cardiomegaly, stable No mediastinal mass or fluid col lection. Normal size mediastinal, hilar, and axillary lymph nodes. THORACIC AORTA: Normal caliber and configuration. PULMONARY ARTERIES: Normal caliber. HEART: Unremarkable. Abdomen/Pelvis LIVER: Hepatomegaly with nodular contour particularly along the inferior aspect of the right lobe, st able.. No focal lesion. GALLBLADDER/BILE DUCTS: No biliary ductal dilatation. PANCREAS: No mass, ductal dilation, or dank-pancreatic fluid. SPLEEN: Normal size. No focal lesion. ADRENALS: Normal; no mass. KIDNEYS AND URETERS: Stable contour with stable left cortical and parapelvic cystic lesions, largest at the lower pole measuring 7.9 cm. Numerous left renal calculi largest measuring up to 8 mm, probably stable although motion artifact limits evaluation. No hydronephrosis. GASTROINTESTINAL TRACT: Stomach is non-dilated. Small bowel has normal course and caliber. No colonic wall thickening or pericolonic inflammatory changes. PERITONEUM: Moderate free ascites, progressive since prior exam. LYMPH NODES: No lymphadenopathy. ABDOMINAL AORTA AND OTHER VESSELS: Normal caliber aorta and IVC. URINARY BLADDER: Normal contour. REPRODUCTIVE ORGANS: No pathologic process. MUSCULOSKELETAL: No acute or suspicious osseous abnormality. ADDITIONAL FINDINGS: Bilateral inguinal hernias containing fat. IMPRESSION: Progressive right pleural effusion and free ascites, now up to moderate. Other stable findings including hepatomegaly with nodular liver capsular contour, concerning for an u nderlying mass as seen on prior MRI. Other stable findings including multiple left renal cystic lesions, numerous nonobstructing left rohan l calculi. Motion artifact limits evaluation.
--- NOTE | 2025-02-09 21:56 | RAD REPORT ---
EXAM: CT brain without contrast HISTORY: ams COMPARISON: None TECHNIQUE: Multiple contiguous axial images were obtained and a CT of the brain without contrast. Sag ittal and coronal reformats were performed. FINDINGS: No evidence of hydrocephalus, intracranial hemorrhage, or extra-axial fluid collection. Moderate brain atrophy with moderate periventricular and deep white matter chronic microvascular isc hemic changes present. The calvarium is intact. The visualized paranasal sinuses are clear. Patchy opacification within the mastoid air cells predominantly involving the mastoid antra bilaterally. IMPRESSION: No evidence of acute intracranial abnormality. Nonspecific white matter hypodensities as above. Mastoid effusions versus sequelae of otitis media bilaterally EXAM: CT of the cervical spine without contrast HISTORY: ams COMPARISON: None TECHNIQUE: Multiple contiguous axial images were obtained in a CT of the cervical spine without contr ast. Sagittal and coronal reformats were performed. FINDINGS: The vertebral bodies demonstrate normal height and alignment. No evidence of acute fracture or subluxation.. Multilevel degenerative changes, most pronounced on the left at C2-3. Up to moderate multilevel degenerative changes, most pronounced on the right at C5-6 and C6-7. No preverte bral soft tissue swelling is seen. The posterior facets are well aligned. Normal alignment of the skull base with the cervical spine is seen. Calcified ovoid lesion measuring 5 mm in thickness along the left dorsal spinal canal at C4-5 level, could represent a calcified spinal meningioma. The lung apices are unremarkable. IMPRESSION: No evidence of acute osseous abnormality of the cervical spine. Multilevel degenerative changes and p ossible calcified spinal meningioma as above.
--- NOTE | 2025-02-09 22:11 | ER ---
Nurse's Notes [facility] Name: Tristin Mazariegos Age: 74 yrs Sex: Male : 1950 Arrival Date: 02/09/2025 Time: 18:19 Bed 4 Private MD: Diagnosis: Altered mental status, unspecified;Unspecified combined systolic (congestive) and diastolic (congestive) heart failure;Pleural effusion, not elsewhere classified;Other ascites Presentation: 02/09 18:35 Chief complaint: EMS states: Family concerned he seems SOB and more confused than hb normal. Coronavirus screen: At this time, the client does not indicate any symptoms associated with coronavirus-19. Ebola Screen: No symptoms or risks identified at this time. Initial Sepsis Screen: Does the patient meet any 2 criteria? No. Patient's initial sepsis screen is negative. Does the patient have a suspected source of infection? No. Patient's initial sepsis screen is negative. Risk Assessment: Do you want to hurt yourself or someone else? Patient reports no desire to harm self or others. Onset of symptoms is unknown. Transition of care: patient was received from another setting of care (long-term care facility)[facility]. 18:35 Method Of Arrival: EMS: [facility] hb 18:35 Acuity: RANDOLPH 2 hb Historical: - Allergies: 18:37 No Known Allergies; hb - PMHx: 18:37 Atrial fibrillation; Congestive heart failure; BPH; Hypercholesterolemia; DM2; NSTEMI; hb 18:37 Prostate Cancer; w/mets to liver; Hepatitis C; Hypertension; hb - PSHx: 18:37 foot sx; hb - Immunization history:: Adult Immunizations up to date. - Infectious Disease History:: Denies. - Family history:: not pertinent. - Social history:: Smoking status: unknown. Screenin:56 [facility] ED Fall Risk Assessment (Adult) History of falling in the last 3 months, hb including since admission Yes- physiologic fall (2 pts) Confusion or Disorientation Yes (5 pts) Intoxicated or Sedated No (0 pts) Impaired Gait Yes (1 pt) Mobility Assist Device Used Yes (1 pt) Altered Elimination Yes (1 pt) Score/Fall Risk Level 3 or more points = High Risk Oriented to surroundings, Maintained a safe environment, Educated pt \T\ family on fall prevention, incl call for assistance when getting out of bed. Abuse screen: Denies threats or abuse. Denies injuries from another. Nutritional screening: No deficits noted. Tuberculosis screening: No symptoms or risk factors identified. Assessment: 18:56 General: Appears in no apparent distress. Behavior is calm, cooperative. Pain: Denies hb pain. Neuro: Level of Consciousness is awake, alert, obeys commands, confused, Oriented to person. Cardiovascular: Patient's skin is warm and dry. Respiratory: Respiratory effort is even, unlabored, Respiratory pattern is regular, symmetrical. GI: No signs and/or symptoms were reported involving the gastrointestinal system. : No signs and/or symptoms were reported regarding the genitourinary system. EENT: No signs and/or symptoms were reported regarding the EENT system. Derm: Skin is pink, warm \T\ dry. Musculoskeletal: No signs and/or symptoms reported regarding the musculoskeletal system. 19:14 Reassessment: Patient appears in no apparent distress at this time. No changes from bm8 previously documented assessment. Patient and/or family updated on plan of care and expected duration. Pain level reassessed. 20:25 Reassessment: pt became more agitated and started pulling off monitoring equipment and bm8 scaring family. provider notified and new orders received. 20:56 Reassessment: Patient appears in no apparent distress at this time. Patient and/or bm8 family updated on plan of care and expected duration. Pain level reassessed. pt's diaper and linen changed pure wic applied to pt. Pain: Denies pain. Neuro: Level of Consciousness is awake, obeys commands, confused, Oriented to person. 21:25 Reassessment: pt back from ct. bm8 22:32 Reassessment: Patient appears in no apparent distress at this time. Patient and/or bm8 family updated on plan of care and expected duration. Pain level reassessed. pt has removed all monitoring equipment, refuses to allow vital sign monitoring. O2 per NC remains in place. Patient denies pain at this time. Neuro: Level of Consciousness is awake, confused, Oriented to person. 23:25 Reassessment: Patient appears in no apparent distress at this time. No changes from bm8 previously documented assessment. Patient and/or family updated on plan of care and expected duration. Pain level reassessed. Informed MD of agitated behavior, awaiting new orders Patient denies pain at this time. Vital Signs: 18:35 BP 128 / 72; Pulse 68; Resp 19; Temp 98.1; Weight 90.72 kg; Pain 0/10; hb 19:14 BP 132 / 78; Pulse 92; Resp 30; Temp 98.1; Pulse Ox 94% on 2 lpm NC; Pain 0/10; bm8 20:25 BP 127 / 66; Pulse 98; Resp 18; Temp 98.1; Pulse Ox 97% on 6 lpm NC; Pain 0/10; bm8 22:32 bm8 23:25 bm8 18:35 Pain Scale: Adult hb 19:14 Pain Scale: Adult bm8 20:25 Pain Scale: Adult bm8 22:32 pt refuses to allow vital sign monitoring bm8 23:25 pt refuses to allow vital sign monirotring bm8 Kenyatta Coma Score: 19:14 Eye Response: spontaneous(4). Motor Response: obeys commands(6). Verbal Response: bm8 confused(4). Total: 14. 20:25 Eye Response: spontaneous(4). Motor Response: obeys commands(6). Verbal Response: bm8 confused(4). Total: 14. 22:32 Eye Response: spontaneous(4). Motor Response: obeys commands(6). Verbal Response: bm8 confused(4). Total: 14. ED Course: 18:34 Patient arrived in ED. hb 18:34 Jackson Marc MD is Attending Physician. rt 18:37 Triage completed. hb 18:39 Arm band placed on. hb 18:55 Basic Metabolic Panel Sent. hb 18:55 AMMONIA Sent. hb 18:55 CBC with Diff Sent. hb 18:55 LFT's Sent. hb 18:55 Magnesium Sent. hb 18:55 Troponin HS Sent. hb 18:55 Initial lab(s) drawn, by me, sent to lab. Inserted saline lock: 22 gauge in right hb wrist, using aseptic technique. Blood collected. Flushed with 10 mL NS. 18:56 Patient has correct armband on for positive identification. Bed in low position. Call hb light in reach. 18:58 Lindsey Sharpe, RN is Primary Nurse. hb 19:14 Client placed on continuous cardiac and pulse oximetry monitoring. NIBP monitoring bm8 applied. quality assurance monitor body on. Pulse ox on. NIBP on. Door closed. Noise minimized. Warm blanket given. Pillow given. Verbal reassurance given. Head of bed lowered. 19:14 No provider procedures requiring assistance completed. Oxygen administration via nasal bm8 cannula \T\ 2L/min Response to oxygen therapy: symptoms improved. 20:35 Attending Physician role handed off by Jackson Marc MD rn 20:35 Flaco Desir MD is Attending Physician. rn 21:25 CT Chest Abdomen Pelvis W/O Contrast In Process Unspecified. EDMS 21:25 CT Head C Spine In Process Unspecified. EDMS 22:11 Cesar Bernstein MD is Hospitalizing Provider. rn 22:32 Provided Education on: need for admission. bm8 22:32 Patient admitted, IV remains in place. bm8 Administered Medications: 20:27 Drug: Geodon IM 20 mg IM once Route: IM; Site: right vastus lateralis; bm8 22:34 Follow up: Response: No adverse reaction bm8 Medication: 18:56 VIS not applicable for this client. hb Outcome: 22:11 Decision to Hospitalize by Provider. rn 02/10 00:38 Patient left the ED. jb4 00:38 Admitted to Tele accompanied by tech, via stretcher, room 407, with oxygen, with chart, bm8 00:38 Condition: stable 00:38 Instructed on follow up and referral plans. the need for admit, Demonstrated understanding of instructions, follow-up care, medications, Signatures: Dispatcher [employer] EDMS Flaco Desir MD MD rn Baxter, Heather, RN RN hb Bryson, James, RN RN jb4 Jackson Marc MD MD rt Samy Huff RN RN bm8 Corrections: (The following items were deleted from the chart) 02/09 18:39 18:37 PMHx: Hypertensive disorder; hb hb 18:39 18:37 PMHx: Hepattis C (foot sx); hb hb 18:39 18:37 PMHx: Prostate Cancer (foot sx); hb hb
--- NOTE | 2025-02-09 22:11 | EDPHYS ---
Physician Documentation [facility] Name: Tristin Mazariegos Age: 74 yrs Sex: Male : 1950 Arrival Date: 02/09/2025 Time: 18:19 Bed 4 Private MD: ED Physician Flaco Desir HPI: 02/09 18:56 This 74 yrs old Male presents to ER via EMS with complaints of Altered Mental Status. rt 18:56 History limited due to patient status. Patient reportedly has a history of CKD, liver rt failure. Was at assisted, does not want admission for long. With his worsening abdominal distention, difficulty breathing, patient denies this but denies any complaints. Symptoms are moderate severity, no aggravating or alleviating factors.. Historical: - Allergies: 18:37 No Known Allergies; hb - PMHx: 18:37 Atrial fibrillation; Congestive heart failure; BPH; Hypercholesterolemia; DM2; NSTEMI; hb 18:37 Prostate Cancer; w/mets to liver; Hepatitis C; Hypertension; hb - PSHx: 18:37 foot sx; hb - Immunization history:: Adult Immunizations up to date. - Infectious Disease History:: Denies. - Family history:: not pertinent. - Social history:: Smoking status: unknown. ROS: 18:56 Neuro: Positive for altered mental status, rt 18:56 Unable to obtain ROS due to altered mental status, Exam: 18:56 Constitutional: This is a well developed, well nourished patient who is awake, alert, rt and in no acute distress. Head/Face: Normocephalic, atraumatic. Chest/axilla: Normal chest wall appearance and motion. Nontender with no deformity. No lesions are appreciated. Cardiovascular: Regular rate and rhythm with a normal S1 and S2. No gallops, murmurs, or rubs. Normal PMI, no JVD. No pulse deficits. Skin: Warm, dry with normal turgor. Normal color with no rashes, no lesions, and no evidence of cellulitis. MS/ Extremity: Pulses equal, no cyanosis. Neurovascular intact. Full, normal range of motion. 18:56 ECG was reviewed by the Attending Physician. 18:56 Respiratory: Somewhat shallow respirations, breath sounds clear, 18:56 Abdomen/GI: Distended abdomen, no tenderness, Vital Signs: 18:35 BP 128 / 72; Pulse 68; Resp 19; Temp 98.1; Weight 90.72 kg; Pain 0/10; hb 19:14 BP 132 / 78; Pulse 92; Resp 30; Temp 98.1; Pulse Ox 94% on 2 lpm NC; Pain 0/10; bm8 20:25 BP 127 / 66; Pulse 98; Resp 18; Temp 98.1; Pulse Ox 97% on 6 lpm NC; Pain 0/10; bm8 22:32 bm8 23:25 bm8 18:35 Pain Scale: Adult hb 19:14 Pain Scale: Adult bm8 20:25 Pain Scale: Adult bm8 22:32 pt refuses to allow vital sign monitoring bm8 23:25 pt refuses to allow vital sign monirotring bm8 Micro Coma Score: 19:14 Eye Response: spontaneous(4). Motor Response: obeys commands(6). Verbal Response: bm8 confused(4). Total: 14. 20:25 Eye Response: spontaneous(4). Motor Response: obeys commands(6). Verbal Response: bm8 confused(4). Total: 14. 22:32 Eye Response: spontaneous(4). Motor Response: obeys commands(6). Verbal Response: bm8 confused(4). Total: 14. MDM: 18:34 Medical Screening Exam initiated rt 22:10 Differential Diagnosis: electrolyte abnormality, intracranial bleed, pneumonia, UTI, rn volume depletion. Data reviewed: vital signs, nurses notes, lab test result(s), radiologic studies, CT scan, and as a result, I will admit patient. Consideration of Admission/Observation Patient was admitted/placed on observation. Escalation of care including admission/observation considered. Counseling: I had a detailed discussion with the patient and/or guardian regarding the historical points, exam findings, and any diagnostic results supporting the discharge/admit diagnosis, lab results, radiology results, the need for further work-up and treatment in the hospital. Response to treatment: There is no appreciated change of the patient's symptoms at this time. 02/09 18:36 Order name: Basic Metabolic Panel; Complete Time: 19:58 rt 02/09 18:36 Order name: CBC with Diff; Complete Time: 19:58 rt 02/09 18:36 Order name: LFT's; Complete Time: 19:58 rt 02/09 18:36 Order name: Magnesium; Complete Time: 19:58 rt 02/09 18:36 Order name: Troponin HS; Complete Time: 19:58 rt 02/09 18:36 Order name: AMMONIA; Complete Time: 19:58 rt 02/09 18:37 Order name: UA Rfx Siddhartha Cult if indicated rt 02/09 20:27 Order name: BNP; Complete Time: 21:21 kmf 02/09 23:27 Order name: CBC with Automated Diff EDMS 02/09 23:27 Order name: CBC with Automated Diff EDMS 02/09 23:27 Order name: Comprehensive Metabolic Panel EDMS 02/09 23:27 Order name: Comprehensive Metabolic Panel EDMS 02/09 18:36 Order name: CT Chest Abdomen Pelvis W/O Contrast; Complete Time: 22:06 rt 02/09 18:36 Order name: CT Head C Spine; Complete Time: 22:06 rt 02/09 18:36 Order name: EKG; Complete Time: 18:37 rt 02/09 18:36 Order name: Cardiac monitoring; Complete Time: 18:55 rt 02/09 18:36 Order name: EKG - Nurse/Tech; Complete Time: 18:55 rt 02/09 18:36 Order name: IV Saline Lock; Complete Time: 18:55 rt 02/09 18:36 Order name: Labs collected and sent; Complete Time: 18:55 rt 02/09 18:36 Order name: O2 Per Protocol; Complete Time: 18:55 rt 02/09 18:36 Order name: O2 Sat Monitoring; Complete Time: 18:55 rt EC:56 Rate is 101 beats/min. Rhythm is regular, Sinus tachycardia with Occasional PVCs. QRS rt [place] is Normal. OK interval is prolonged at 256 msec. QRS interval is normal. QT interval is normal. No Q waves. Administered Medications: 20:27 Drug: Geodon IM 20 mg IM once Route: IM; Site: right vastus lateralis; bm8 22:34 Follow up: Response: No adverse reaction bm8 Disposition Summary: 02/09/25 22:11 Hospitalization Ordered Notes: Hospitalization Status: Inpatient Admission rn Provider: Cesar Bernstein rn Location: Telemetry/MedSurg (Inpatient) rn Condition: Stable rn Problem: new rn Symptoms: are unchanged rn Bed/Room Type: Standard rn Room Assignment: 407(02/09/25 23:38) al5 Diagnosis - Altered mental status, unspecified rn - Unspecified combined systolic (congestive) and diastolic (congestive) heart failure rn - Pleural effusion, not elsewhere classified rn - Other ascites rn Forms: - Medication Reconciliation Form rn - SBAR form rn - Leadership Thank You Letter rn Signatures: Dispatcher [employer] EDFlaco Alvarado MD MD rn Baxter, Heather RN RN Jackson De Jesus MD MD rt Samy Huff RN UGO bm8 Shanell Giles RN RN al5 Corrections: (The following items were deleted from the chart) 18:39 18:37 PMHx: Hypertensive disorder; hb hb 18:39 18:37 PMHx: Hepattis C (foot sx); hb hb 18:39 18:37 PMHx: Prostate Cancer (foot sx); hb hb 23:38 22:11 rn al5
--- NOTE | 2025-02-09 23:06 | P.HP ---
Certification for Inpatient Patient admitted to: Inpatient With expected LOS: >2 Midnights Practitioner: I am a practitioner with admitting privileges, knowledge of patient current condition, hospital course, and medical plan of care. Services: Services provided to patient in accordance with Admission requirements found in Title 42 Section 412.3 of the Code of Federal Regulations Patient History Date of Service: 02/10/25 Reason for admission: SOB History of Present Illness: [id number] male with multiple comorbidities including type 2 diabetes mellitus, essential hypertension, enlarged prostate, prostate cancer with metastasis for diabetic neuropathy, atrial fibrillation currently on Eliquis 5 mg p.o. twice daily, CHF, coronary artery disease with stent placement in , broken right foot in March/2017 who was recently admitted to the hospital and was discharged to SNF after prolonged stay, brought back to ER with altered mental status. He was complaining of shortness of breath and back pain. Denies any chest pain. No fever or chills. Patient is a poor historian and is altered hence most of the history is obtained from the chart review and also talking to the at the bedside. Patient was assessed in the ER and was admitted for further management. Allergies No Known Allergies Allergy (Verified 12/22/24 23:06) Home medications list reviewed: Yes Home Medications: Acetaminophen [Tylenol*] 1,000 mg PO Q6H PRN 02/10/25 Acetaminophen with Codeine [Acetaminophen-Cod #3 Tablet] 1 tab PO Q8H PRN 02/10/25 Amoxicillin [Amoxil] 875 mg PO BID 02/10/25 Atorvastatin Calcium 40 mg PO BEDTIME 02/10/25 Baclofen 10 mg PO BID 02/10/25 Bumetanide 1 mg PO BID 02/10/25 Docusate Sodium 100 mg PO BID 02/10/25 Gabapentin 300 mg PO BEDTIME 02/10/25 Insulin Regular, Human [Humulin R U-500 Kwikpen] See Protocol SQ ACHS 02/10/25 Lactulose 30 ml PO Q12H PRN 02/10/25 Lidocaine 4% Patch [Lidoderm 5% Patch*] 1 patch TOP DAILY 02/10/25 Metoprolol Succinate 25 mg PO DAILY 02/10/25 Pantoprazole Sodium 40 mg PO BID 02/10/25 Tamsulosin [Flomax*] 0.4 mg PO BID 02/10/25 hydrOXYzine pamoate [Hydroxyzine Pamoate] 25 mg PO Q12H PRN 02/10/25 methocarbamoL [Methocarbamol] 500 mg PO Q8H PRN 02/10/25 predniSONE [Prednisone*] 20 mg PO DAILY 02/10/25 - Past Medical/Surgical History Diabetic: Yes Past Medical History: Reviewed- Non-Contributory -: NIDDM -: Atrial fibrillation -: Hypertension -: BPH -: Diabetic neuropathy -: Charcot right foot -: CAD -: Chronic pain -: Heart stent -: Prostate CA -: CHF -: RUBI Past Surgical History: Reviewed- Non-Contributory -: Right foot surgery -: Basal cell carcinoma nose -: Left leg surgery -: Liver biopsy -: Paracentecis Psychosocial/ Personal History: Patient is retired, lives at home with his - Family History Mother -: Heart disease, Diabetes, Cancer Notes: Brother -: Heart disease, Diabetes - Social History Smoking Status: Never smoker Alcohol use: No CD- Drugs: No Caffeine use: No Review of Systems is unable to be obtained Physical Examination - Vital Signs Temperature: 98.1 F Blood Pressure: 143/76 Pulse: 95 Respirations: 18 Pulse Ox (%): 94 - Physical Exam General: Mild distress, Confused, Obese HEENT: Atraumatic, Normocephalic Neck: Supple Respiratory: Clear to auscultation bilaterally, Normal air movement Cardiovascular: Regular rate/rhythm, Normal S1 S2 Capillary refill: <2 Seconds Gastrointestinal: Soft and benign, W/out hepatosplenomegaly Musculoskeletal: No clubbing, Swelling Integumentary: No rashes Neurological: Other (Lethargic, confused, moves all limbs) Lymphatics: No axilla or inguinal lymphadenopathy - Studies Laboratory Data (last 24 hrs) 02/09/25 02/09/25 18:52 18:52 WBC 11.70 H Hgb 8.2 L Hct 26.1 L Plt Count 332 Sodium 132 L Potassium 4.6 BUN 75 H Creatinine 2.39 H Glucose 217 H Magnesium 1.9 Total Bilirubin 0.9 AST 94 H ALT 35 Alkaline Phosphatase 573 H Assessment and Plan - Plan Acute encephalopathy metabolic Acute on chronic CHF exacerbation diastolic Acute on chronic hypoxic hypercapnic respiratory failure History of gastric AVM, gastric erosions Acute kidney injury on CKD stage II Right pleural effusion Chronic A-fib s/p cardioversion (11/2024) Chronic Hepatitis C NIDDM2 BPH Hyperglycemia Hx metastatic prostate cancer (mets to lung, liver, shoulder) Hx CAD s/p PCI (2017) Hx Recent Portal vein thrombosis (11/2024) Plan CT head negative for any acute changes 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 closely Aggressive diuresis Antihypertensives titrated Continue home medications and titrate as needed Monitor renal parameters Electrolytes monitor and replace accordingly Will consult nephrology Insulin sliding scale Accu-Chek before every meal and at bedtime We will get a urine culture to rule out UTI Will start on empiric antibiotics Stop antibiotic if cultures are negative GI/DVT prophylaxis Advanced directive full code Discharge Plan: Skilled Nursing - Advance Directives Does patient have a Living Will: No Does patient have a Durable POA for Healthcare: No - Code Status/Comfort Care Code Status: Full Code Time Spent Managing Pts Care (In Minutes): 48
[2025-02-09] MEDS ORDERED: ACETAMINOPHEN 325 MG TABLET PO PRN (23:22)
[2025-02-09] MEDS ORDERED: ONDANSETRON 4 MG/2 ML VIAL IV PRN (23:22)
[2025-02-09] MEDS ORDERED: ALBUTEROL 2.5 MG/3 ML NEB SOL NEB PRN (23:22)
[2025-02-10] MEDS ORDERED: LACTULOSE 20 GM/30 ML UCUP PO PRN (02:28)
[2025-02-10] MEDS ORDERED: ACETAMINOPHEN 325 MG TABLET PO PRN (02:28)
[2025-02-10] MEDS ORDERED: CODEINE 30MG/APAP 300MG TAB PO PRN (02:28)
[2025-02-10] MEDS ORDERED: HYDROCODONE/APAP 5/325 MG TAB PO PRN (02:30)
[2025-02-10] MEDS: MORPHINE 2 MG/ML SYR IV PRN (02:54)
[2025-02-10] MEDS: LORazepam 2 MG/ML VIAL IV ONE ×3 (04:27→23:53)
[2025-02-10 05:00] LABS: Absolute Lymphocytes (CBC) 0.4 K/uL (0.7-4.9); Hematocrit 24.4 % (39.6-49.0); Hemoglobin 7.7 g/dL (13.6-17.9); MCH 27.4 pg (27.0-35.0); MCHC 31.6 g/dL (32.0-36.0); MCV 86.8 fL (80-100); MPV 8.4 fL (7.6-11.3); Nucleated RBC Absolute Count 0.0 (0-0); Nucleated Red Blood Cells % 0.0 % (0-0); RBC Red Blood Cell Count 2.81 M/uL (4.33-5.43); White Blood Count 12.10 thou/uL (4.3-10.9)
[2025-02-10 05:17] LABS: ALT/SGPT 31.0 U/L (16-61); AST/SGOT 82.0 U/L (15-37); Albumin 2.3 g/dL (3.4-5.0); Albumin/Globulin Ratio 0.5 (1.1-1.8); Alkaline Phosphatase 544.0 U/L (45-117); Anion Gap 9.4 mEq/L (5.0-15.0); BUN Blood Urea Nitrogen 74.0 mg/dL (7-18); Globulin 4.2 g/dL (2.3-3.5); Glucose Level 202.0 mg/dL (74-106); Potassium 4.4 mEq/L (3.5-5.1)
[2025-02-10] MEDS: LACTULOSE 20 GM/30 ML UCUP PO ONE ×2 (05:17→08:48)
[2025-02-10 05:59] LABS: Differential Total Cells Count 100; Segmented Neutrophils 84 % (40-80)
[2025-02-10 06:00] LABS: Blood Morphology Comment NOT SEEN (NOT SEEN)
--- NOTE | 2025-02-10 07:31 | P.PN ---
Date of Service: 02/10/25 Subjective: family states he did well at the [facility] for a few days however became significantly more confused and agitated prior to admission was seen in ER a few days ago after choking episode. Family reports he was prescribed augmentin and prednisone on 02/06 and symptoms started ~1-2 days after starting these medications still confused and agitated. attempting to get out of bed and pull IV out currently in a-fib; HR 100s unclear when last BM was. Was constipated during last hospitalization Physical Exam: GEN: Awake, Agitated, Confused CV: Irregularly Irregular rate and rhythm, no edema Pulm: Nonlabored respirations on room air, diminished at right lung base ABD: soft, nontender, ascites Neuro: Moves all extremities, confused Problem List: Acute metabolic encephalopathy / Delirium Hyperammonemia Acute on chronic diastolic CHF exacerbation Moderate Ascites and Moderate R pleural effusion Acute hypoxic respiratory failure secondary to the above RUBI Recent 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, gastric erosions Chronic A-fib s/p cardioversion (11/2024) Chronic Hepatitis C NIDDM2 BPH Hx metastatic prostate cancer (mets to lung, liver, shoulder) Hx CAD s/p PCI (2017) Hx Recent Portal vein thrombosis (11/2024) Acute metabolic encephalopathy / Delirium Hyperammonemia Acute on chronic diastolic CHF exacerbation Moderate Ascites and Moderate R pleural effusion Acute hypoxic respiratory failure secondary to the above on admission, presents with increased confusion, agitation associated with worsening shortness of breath family states he did well at the [facility] for a few days after discharge however became significantly more confused and agitated prior to admission He was seen in ER a few days ago for SOB after choking episode. Family reports he was prescribed augmentin and prednisone on 02/06 and symptoms started ~1-2 days after starting these medications CT head (02/09): Noted chronic microvascular changes, multilevel degenerative changes and possible calcified spinal meningioma otherwise negative CT chest/abd (02/09): Progressive R pleural effusion and free ascites Continue IV lasix 40 mg q8h Labwork similar to labs from prior discharge. BNP slightly improved compared to ~2 weeks ago Ammonia levels elevated (77) which could be contributing to his confusion/delirium Start Lactulose with goal of 2-3 BM a day Colace BID Medication could also be playing a role. He was recently started on prednisone and symptoms started ~1 day after taking it. He did not receive any steroids during last hospitalization. Given ativan x2 overnight/this morning RUBI Monitor renal function. Monitor and replete electrolytes as needed. Nephrology consulted Creatinine stable, similar to prior DC Recent 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, gastric erosions Continue home protonix diet as tolerated Monitor hgb. Chronic A-fib s/p cardioversion (11/2024) Currently in A-fib with RVR; HR 100s Continue metoprolol 25 daily Monitor on telemetry Not on anticoagulation due to recent UGIB and AVM Chronic Hepatitis C f/u outpatient for further management NIDDM2 accu-cheks, SSI BPH Hx metastatic prostate cancer (mets to lung, liver, shoulder) Hx CAD s/p PCI (2017) Hx Recent Portal vein thrombosis (11/2024) confirm home meds, restart as appropriate resume home flomax, statin continue home pain management regimen VTE: Lovenox Code: switch to DNR - 02/10 Confirmed with patients family Time Spent Managing Pts Care (In Minutes): 55
[2025-02-10] MEDS: ENOXAPARIN 40 MG/0.4 ML SQ SCH (08:47)
[2025-02-10] MEDS: METOPROLOL XL 25 MG TAB PO SCH (08:49)
[2025-02-10] MEDS: AMOXICILLIN TRIHYDR 250 MG CAP PO SCH (08:49)
[2025-02-10] MEDS: TAMSULOSIN 0.4 MG SR CAP PO SCH (08:49)
[2025-02-10] MEDS: BACLOFEN 10 MG TAB PO SCH (08:49)
[2025-02-10] MEDS: hydrOXYzine HCL 25 MG TAB PO PRN (08:50)
[2025-02-10] MEDS: PANTOPRAZOLE 40MG TABLET PO SCH (08:51)
[2025-02-10] MEDS: DOCUSATE NA 100 MG CAP PO SCH (08:52)
[2025-02-10] MEDS: CEFTRIAXONE 1,000 MG in NA CHLORIDE 0.9% 50 ML IVPB SCH (08:52)
[2025-02-10] MEDS: FUROSEMIDE 40 MG/4 ML VIAL IV SCH (08:52)
[2025-02-10] MEDS: LIDOCAINE 4% PATCH TOP SCH (08:53)
[2025-02-10] MEDS ORDERED: AMOXICILLIN TRIHYDR 250 MG CAP PO SCH (09:00)
[2025-02-10] MEDS ORDERED: AZITHROMYCIN IV 500 MG in NA CHLORIDE 0.9% 250 ML IVPB SCH (09:00)
[2025-02-10] MEDS ORDERED: AMOXICILLIN 875 MG PO SCH (09:00)
--- NOTE | 2025-02-10 11:40 | P.CNS ---
Date of Consult: 02/10/25 Chief Complaint: SOB History of Present Illness: Patient with multiple medical problems, cardiac hinds he got history of AF, Torsade due to prolong QT, CAD, diastolic heart failure, he had long hospital course earlier with RUIB needing dialysis, he presented again from [facility] for altered mental status and delirium, was found in Heart failure and RVR, patient is combative, altered and history obtained from talking to , no chest pain reported per . Allergies No Known Allergies Allergy (Verified 12/22/24 23:06) Home medications list reviewed: Yes Home Medications: Acetaminophen [Tylenol*] 1,000 mg PO Q6H PRN 02/10/25 Acetaminophen with Codeine [Acetaminophen-Cod #3 Tablet] 1 tab PO Q8H PRN 02/10/25 Amoxicillin [Amoxil] 875 mg PO BID 02/10/25 Atorvastatin Calcium 40 mg PO BEDTIME 02/10/25 Baclofen 10 mg PO BID 02/10/25 Bumetanide 1 mg PO BID 02/10/25 Docusate Sodium 100 mg PO BID 02/10/25 Gabapentin 300 mg PO BEDTIME 02/10/25 Insulin Regular, Human [Humulin R U-500 Kwikpen] See Protocol SQ ACHS 02/10/25 Lactulose 30 ml PO Q12H PRN 02/10/25 Lidocaine 4% Patch [Lidoderm 5% Patch*] 1 patch TOP DAILY 02/10/25 Metoprolol Succinate 25 mg PO DAILY 02/10/25 Pantoprazole Sodium 40 mg PO BID 02/10/25 Tamsulosin [Flomax*] 0.4 mg PO BID 02/10/25 hydrOXYzine pamoate [Hydroxyzine Pamoate] 25 mg PO Q12H PRN 02/10/25 methocarbamoL [Methocarbamol] 500 mg PO Q8H PRN 02/10/25 predniSONE [Prednisone*] 20 mg PO DAILY 02/10/25 - Past Medical/Surgical History Diabetic: Yes -: NIDDM -: Atrial fibrillation -: Hypertension -: BPH -: Diabetic neuropathy -: Charcot right foot -: CAD -: Chronic pain -: Heart stent -: Prostate CA -: CHF -: RUBI -: Right foot surgery -: Basal cell carcinoma nose -: Left leg surgery -: Liver biopsy -: Paracentecis Psychosocial/ Personal History: Patient is retired, lives at home with his - Family History Mother Medical History: Heart disease, Diabetes, Cancer Notes: Brother Medical History: Heart disease, Diabetes - Social History Alcohol use: No CD- Drugs: No Caffeine use: No Place of Residence: [facility] Review of Systems 10-point ROS is otherwise unremarkable Physical Examination Temp Pulse Resp BP Pulse Ox 97.8 F 102 H 16 126/56 L 91 02/10/25 08:00 02/10/25 08:52 02/10/25 10:46 02/10/25 08:52 02/10/25 10:46 General: Alert, Mild distress, Confused HEENT: Atraumatic, PERRLA, Mucous membr. moist/pink, EOMI, Sclerae nonicteric Neck: Supple, 2+ carotid pulse no bruit, No LAD, Without JVD or thyroid abnormality Respiratory: Normal air movement, Crackles/rales Cardiovascular: Normal S1 S2, Edema, Irregular heart rate/rhythm Gastrointestinal: Normal bowel sounds, No tenderness Musculoskeletal: No tenderness Integumentary: No rashes Neurological: Normal gait, Normal speech, Normal tone, Normal affect Lymphatics: No axilla or inguinal lymphadenopathy Laboratory Data (last 24 hrs) 02/09/25 02/09/25 18:52 18:52 WBC 11.70 H Hgb 8.2 L Hct 26.1 L Plt Count 332 Sodium 132 L Potassium 4.6 BUN 75 H Creatinine 2.39 H Glucose 217 H Magnesium 1.9 Total Bilirubin 0.9 AST 94 H ALT 35 Alkaline Phosphatase 573 H - Problems (1) Acute on chronic diastolic heart failure Current Visit: Yes Status: Acute Plan: agree with lasix 40 mg IV Q8 hours continue to monitor input and output and electrolytes. (2) CAD (coronary artery disease) Current Visit: Yes Status: Acute Plan: stable, troponin negative. continue ASA 81 mg daily (3) Atrial fibrillation Current Visit: No Status: Acute Plan: patient is in RVR, HR in the 100s, he is very agitated, would recommend to control his agitation, also continue Toprol XL 25 mg daily patient can not take anticoagulation due to recent GI bleed and AVM continue to monitor on tele
[2025-02-10] MEDS: GABAPENTIN 300 MG CAP PO SCH (20:52)
[2025-02-10] MEDS: ATORVASTATIN 40 MG TAB PO SCH (20:52)
--- NOTE | 2025-02-10 22:02 | P.CNS ---
Date of Consult: 02/10/25 Reason for Consult: CKD Requesting Physician: Tony Desir Chief Complaint: SOB History of Present Illness: [id number] male with multiple comorbidities including type 2 diabetes mellitus, essential hypertension, enlarged prostate, prostate cancer with metastasis for diabetic neuropathy, atrial fibrillation currently on Eliquis 5 mg p.o. twice daily, CHF, coronary artery disease with stent placement in , broken right foot in March/2017 who was recently admitted to the hospital and was discharged to SNF after prolonged stay, brought back to ER with altered mental status. He was complaining of shortness of breath and back pain. Denies any chest pain. No fever or chills. Patient is a poor historian and is altered hence most of the history is obtained from the chart review and also talking to the at the bedside. [id number] 18:56 This 74 yrs old Male presents to ER via EMS with complaints of Altered Mental Status. rt 18:56 History limited due to patient status. Patient reportedly has a history of CKD, liver rt failure. Was at senior living, does not want admission for long. With his worsening abdominal distention, difficulty breathing, patient denies this but denies any complaints. Symptoms are moderate severity, no aggravating or alleviating factors.. Allergies No Known Allergies Allergy (Verified 12/22/24 23:06) Home medications list reviewed: Yes Home Medications: Acetaminophen [Tylenol*] 1,000 mg PO Q6H PRN 02/10/25 Acetaminophen with Codeine [Acetaminophen-Cod #3 Tablet] 1 tab PO Q8H PRN 02/10/25 Amoxicillin [Amoxil] 875 mg PO BID 02/10/25 Atorvastatin Calcium 40 mg PO BEDTIME 02/10/25 Baclofen 10 mg PO BID 02/10/25 Bumetanide 1 mg PO BID 02/10/25 Docusate Sodium 100 mg PO BID 02/10/25 Gabapentin 300 mg PO BEDTIME 02/10/25 Insulin Regular, Human [Humulin R U-500 Kwikpen] See Protocol SQ ACHS 02/10/25 Lactulose 30 ml PO Q12H PRN 02/10/25 Lidocaine 4% Patch [Lidoderm 5% Patch*] 1 patch TOP DAILY 02/10/25 Metoprolol Succinate 25 mg PO DAILY 02/10/25 Pantoprazole Sodium 40 mg PO BID 02/10/25 Tamsulosin [Flomax*] 0.4 mg PO BID 02/10/25 hydrOXYzine pamoate [Hydroxyzine Pamoate] 25 mg PO Q12H PRN 02/10/25 methocarbamoL [Methocarbamol] 500 mg PO Q8H PRN 02/10/25 predniSONE [Prednisone*] 20 mg PO DAILY 02/10/25 - Past Medical/Surgical History Diabetic: Yes -: NIDDM -: Atrial fibrillation -: Hypertension -: BPH -: Diabetic neuropathy -: Charcot right foot -: CAD -: Chronic pain -: Heart stent -: Prostate CA -: CHF -: RUBI -: Right foot surgery -: Basal cell carcinoma nose -: Left leg surgery -: Liver biopsy -: Paracentecis Psychosocial/ Personal History: Patient is retired, lives at home with his - Family History Mother Medical History: Heart disease, Diabetes, Cancer Notes: Brother Medical History: Heart disease, Diabetes - Social History Smoking Status: Unknown if ever smoked Alcohol use: No CD- Drugs: No Caffeine use: No Place of Residence: [facility] Review of Systems 10-point ROS is otherwise unremarkable General: Weakness, Malaise Respiratory: SOB with Excertion Cardiovascular: Edema Neurological: Weakness Physical Examination Temp Pulse Resp BP Pulse Ox 97.8 F 73 16 101/50 L 94 02/10/25 18:57 02/10/25 18:57 02/10/25 18:57 02/10/25 18:57 02/10/25 18:57 General: In no apparent distress HEENT: Atraumatic Neck: Supple Respiratory: Normal air movement Cardiovascular: Regular rate/rhythm, Edema Gastrointestinal: Soft and benign, Non-distended Musculoskeletal: No clubbing, No contractures Integumentary: No rashes, No cyanosis Neurological: Abnormal strength Blood work reviewed in the chart. Imagings Data: EXAM: CT CHEST, ABDOMEN AND PELVIS WITHOUT CONTRAST CLINICAL INDICATION: Male, 74 years old. [facility] MAIN dyspnea, abdominal distention Bed Name: 4 TECHNIQUE: CT chest, abdomen and pelvis was performed, without IV contrast, as per department protocol. Axial, sagittal and coronal reconstructions were obtained. One or more of the following dose reduction techniques were used: Automated exposure control, adjustment of the mA and/or kV according to the patient size, and/or iterative reconstruction. Unless otherwise specified, incidental findings do not require dedicated imaging follow-up. COMPARISON: 01/06/2025 FINDINGS: The lack of intravenous contrast limits the sensitivity of this exam for evaluation of solid visceral organs, vascular structures, and retroperitoneum. Chest: LOWER NECK/CHEST WALL: Visualized thyroid gland and soft tissues are normal. LUNGS AND AIRWAYS: Airways are clear. Dependent airspace opacities particularly in the right lung involving most of the right lower lobe, progressive, favoring atelectasis. Calcified ovoid right lower lobe 1.8 cm nodule, stable. Multiple left upper lung nodules largest measuring 11 mm within the upper lobe posteriorly on axial image 25. Some of the nodules are obscured by ongoing atelectasis and by motion artifact. PLEURA: Progressive moderate to large right pleural effusion. Trace left effusion perhaps mildly improved. No pneumothorax. Hemidiaphragms are normally positioned. MEDIASTINUM AND LYMPH NODES: Moderate to marked cardiomegaly, stable No mediastinal mass or fluid collection. Normal size mediastinal, hilar, and axillary lymph nodes. THORACIC AORTA: Normal caliber and configuration. PULMONARY ARTERIES: Normal caliber. HEART: Unremarkable. Abdomen/Pelvis LIVER: Hepatomegaly with nodular contour particularly along the inferior aspect of the right lobe, stable.. No focal lesion. GALLBLADDER/BILE DUCTS: No biliary ductal dilatation. PANCREAS: No mass, ductal dilation, or dank-pancreatic fluid. SPLEEN: Normal size. No focal lesion. ADRENALS: Normal; no mass. KIDNEYS AND URETERS: Stable contour with stable left cortical and parapelvic cystic lesions, largest at the lower pole measuring 7.9 cm. Numerous left renal calculi largest measuring up to 8 mm, probably stable although motion artifact limits evaluation. No hydronephrosis. GASTROINTESTINAL TRACT: Stomach is non-dilated. Small bowel has normal course and caliber. No colonic wall thickening or pericolonic inflammatory changes. PERITONEUM: Moderate free ascites, progressive since prior exam. LYMPH NODES: No lymphadenopathy. ABDOMINAL AORTA AND OTHER VESSELS: Normal caliber aorta and IVC. URINARY BLADDER: Normal contour. REPRODUCTIVE ORGANS: No pathologic process. MUSCULOSKELETAL: No acute or suspicious osseous abnormality. ADDITIONAL FINDINGS: Bilateral inguinal hernias containing fat. IMPRESSION: Progressive right pleural effusion and free ascites, now up to moderate. Other stable findings including hepatomegaly with nodular liver capsular contour, concerning for an underlying mass as seen on prior MRI. Other stable findings including multiple left renal cystic lesions, numerous nonobstructing left renal calculi. Motion artifact limits evaluation. EXAM: CT brain without contrast HISTORY: ams COMPARISON: None TECHNIQUE: Multiple contiguous axial images were obtained and a CT of the brain without contrast. Sagittal and coronal reformats were performed. FINDINGS: No evidence of hydrocephalus, intracranial hemorrhage, or extra-axial fluid collection. Moderate brain atrophy with moderate periventricular and deep white matter chronic microvascular ischemic changes present. The calvarium is intact. The visualized paranasal sinuses are clear. Patchy opacification within the mastoid air cells predominantly involving the mastoid antra bilaterally. IMPRESSION: No evidence of acute intracranial abnormality. Nonspecific white matter hypodensities as above. Mastoid effusions versus sequelae of otitis media bilaterally EXAM: CT of the cervical spine without contrast HISTORY: ams COMPARISON: None TECHNIQUE: Multiple contiguous axial images were obtained in a CT of the cervical spine without contrast. Sagittal and coronal reformats were performed. FINDINGS: The vertebral bodies demonstrate normal height and alignment. No evidence of acute fracture or subluxation.. Multilevel degenerative changes, most pronounced on the left at C2-3. Up to moderate multilevel degenerative changes, most pronounced on the right at C5-6 and C6-7. No prevertebral soft tissue swelling is seen. The posterior facets are well aligned. Normal alignment of the skull base with the cervical spine is seen. Calcified ovoid lesion measuring 5 mm in thickness along the left dorsal spinal canal at C4-5 level, could represent a calcified spinal meningioma. The lung apices are unremarkable. IMPRESSION: No evidence of acute osseous abnormality of the cervical spine. Multilevel degenerative changes and possible calcified spinal meningioma as above. Conclusions/Impression: CKD IIIb -No NSAIDs Hyponatremia -Continue Lasix Alkalosis -Diamox prn Diastolic CHF, A/C -Continue Lasix DM II with CKD -RISS prn Hypoalbuminemia -Consider Nepro Anemia in chronic illness/ CKD -Monitor H&H -Retacrit prn BPH with LUTS -Continue Flomax Hospitalist and ER notes reviewed Thank you kindly for the consultation
[2025-02-11] MEDS: HALOPERIDOL LACT 5 MG/ML INJ IV ONE ×2 (00:48→01:00)
[2025-02-11 04:48] LABS: Absolute Lymphocytes (CBC) 0.3 K/uL (0.7-4.9); Hematocrit 23.2 % (39.6-49.0); Hemoglobin 7.3 g/dL (13.6-17.9); MCH 27.3 pg (27.0-35.0); MCHC 31.4 g/dL (32.0-36.0); MCV 86.8 fL (80-100); MPV 8.6 fL (7.6-11.3); Nucleated RBC Absolute Count 0.0 (0-0); Nucleated Red Blood Cells % 0.0 % (0-0); RBC Red Blood Cell Count 2.67 M/uL (4.33-5.43); White Blood Count 11.90 thou/uL (4.3-10.9)
[2025-02-11 05:05] LABS: ALT/SGPT 28.0 U/L (16-61); AST/SGOT 65.0 U/L (15-37); Albumin 2.2 g/dL (3.4-5.0); Albumin/Globulin Ratio 0.6 (1.1-1.8); Alkaline Phosphatase 484.0 U/L (45-117); Anion Gap 7.6 mEq/L (5.0-15.0); BUN Blood Urea Nitrogen 82.0 mg/dL (7-18); Globulin 4.0 g/dL (2.3-3.5); Glucose Level 166.0 mg/dL (74-106); Magnesium 1.9 mg/dL (1.6-2.4); Potassium 4.6 mEq/L (3.5-5.1)
[2025-02-11 08:16] LABS: PT Prothrombin Time 17.9 SECONDS (10-13.0); Protime INR 1.61
[2025-02-11] MEDS: LACTULOSE 20 GM/30 ML UCUP PO SCH (09:00)
--- NOTE | 2025-02-11 10:31 | P.PN ---
Date of Service: 02/11/25 Subjective: Family talked amongst themselves and have made the decision to transition to hospice care to prioritize comfort and quality of life to meet with hospice team Physical Exam: GEN: Awake, Agitated, Confused CV: Irregularly Irregular rate and rhythm, no edema Pulm: Nonlabored respirations on room air, diminished at right lung base ABD: soft, nontender, ascites Neuro: Moves all extremities, confused Problem List: Acute metabolic encephalopathy / Delirium Hyperammonemia Acute on chronic diastolic CHF exacerbation Moderate Ascites and Moderate R pleural effusion Acute hypoxic respiratory failure secondary to the above RUBI Recent 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, gastric erosions Chronic A-fib s/p cardioversion (11/2024) Chronic Hepatitis C NIDDM2 BPH Hx metastatic prostate cancer (mets to lung, liver, shoulder) Hx CAD s/p PCI (2017) Hx Recent Portal vein thrombosis (11/2024) on admission, presents with increased confusion, agitation associated with worsening shortness of breath CT head (02/09): Noted chronic microvascular changes, multilevel degenerative changes and possible calcified spinal meningioma otherwise negative CT chest/abd (02/09): Progressive R pleural effusion and free ascites Ammonia levels elevated (77) which could be contributing to his confusion/delirium Medication could also be playing a role. He was recently started on prednisone and symptoms started ~1 day after taking it. He did not receive any steroids during last hospitalization. continue Lactuolose BID, IV lasix q8h Hgb downtrending, Ammonia worse Given patients ongoing decline, worsening quality of life and complex medical history, and after careful consideration given his frequent hospitalization, Family talked amongst themselves and have made the decision to transition to hospice care to prioritize comfort and quality of life which would be in line with patients wishes. cm/ss consulted. To meet with hospice team for further discussion. Continue supportive care, comfort measures, pain control Continue home pain management regimen Code: DNR - 02/10 Confirmed with patients family Dispo: hospice Family to meet with hospice team Time Spent Managing Pts Care (In Minutes): 55
--- NOTE | 2025-02-11 11:38 | P.PN ---
Subjective Date of Service: 02/11/25 Chief Complaint: SOB Subjective: New changes (patient still altered, family optioned for hospice care) Review of Systems is unable to be obtained Physical Examination - Vital Signs Temperature: 97.9 F Blood Pressure: 117/68 Pulse: 90 Respirations: 21 Pulse Ox (%): 98 - Physical Exam General: Alert, Moderate distress, Delirious HEENT: Atraumatic, PERRLA, EOMI Neck: Supple, JVD not distended Respiratory: Clear to auscultation bilaterally, Normal air movement Cardiovascular: Regular rate/rhythm, Normal S1 S2 Gastrointestinal: Normal bowel sounds, No tenderness Musculoskeletal: No tenderness Integumentary: No rashes Neurological: Normal speech, Normal tone, Normal affect Lymphatics: No axilla or inguinal lymphadenopathy - Studies Medications List Reviewed: Yes Assessment And Plan - Current Problems (Diagnosis) (1) Acute on chronic diastolic heart failure Current Visit: Yes Status: Acute Plan: switch to lasix 40 mg po BID continue to monitor input and output and electrolytes. (2) CAD (coronary artery disease) Current Visit: Yes Status: Acute Plan: stable, troponin negative. continue ASA 81 mg daily (3) Atrial fibrillation Current Visit: No Status: Acute Plan: patient converted to sinus rhythm continue Toprol XL 25 mg daily no blood thinners due to bleeding problems.
[2025-02-11] MEDS: LORazepam 2 MG/ML VIAL IV PRN (11:40)
[2025-02-11 12:27] VITALS: O2SAT 96
[2025-02-11 12:37] VITALS: BP 106/51; TEMP 98.7
--- NOTE | 2025-02-11 12:56 | P.DS ---
Admission Date: 02/09/25 Discharge Date: 02/11/25 Disposition: HOSPICE-MEDICAL FACILITY Reason for Admission: SOB Consultations: Cardiology - Dr. Rendon Nephrology - Dr. Moralez Brief History of Present Illness: 74yo M, PMH: type 2 diabetes mellitus, essential hypertension, enlarged prostate, prostate cancer with metastasis for diabetic neuropathy, atrial fibrillation currently on Eliquis 5 mg p.o. twice daily, CHF, coronary artery disease with stent placement in , broken right foot in March/2017 Patient who was recently admitted to the hospital and was discharged to SNF after prolonged stay, brought back to ER with altered mental status. He was complaining of shortness of breath and back pain. Denies any chest pain. No fever or chills. Patient is a poor historian and is altered hence most of the history is obtained from the chart review and also talking to the at the bedside. Patient was assessed in the ER and was admitted for further management. 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 Patient was just recently discharged from prolonged hospitalization to SNF (12/23-02/03). Family states he did well at the skilled nursing for a few days after discharge however became significantly more confused and agitated prior to admission. He was seen in ER a few days ago for SOB after choking episode. Family reports he was prescribed augmentin and prednisone on 02/06 and symptoms started ~1-2 days after starting these medications. CT head done on admission was negative for any acute findings, only noted chronic microvascular changes. CT chest noted progressive right pleural effusion and free ascites, now up to moderate; worse compared to last hospitalization. Labwork on admission was similar to labs from prior discharge. BNP slightly improved compared to ~2 weeks ago. Ammonia levels were noted to be elevated which could have been contributing to his confusion/delirium. Discussed at length with family, Given patients ongoing decline, worsening quality of life and complex medical history, and after careful consideration given his frequent hospitalization, Family talked amongst themselves and have made the decision to transition to hospice care to prioritize comfort and quality of life which would be in line with patients wishes. Physical Exam: GEN: Awake, oriented x1-2, Confused CV: Irregularly Irregular rate and rhythm, no edema Pulm: Nonlabored respirations on room air, diminished at right lung base ABD: soft, nontender, ascites Neuro: Moves all extremities, confused Vital Signs/Physical Exam: Temp Pulse Resp BP Pulse Ox 98.7 F 74 18 106/51 L 96 02/11/25 12:00 02/11/25 12:00 02/11/25 12:17 02/11/25 12:00 02/11/25 12:17 Laboratory Data at Discharge: WBC 11.90 thou/uL (4.3-10.9) H 02/11/25 04:28 Hgb 7.3 g/dL (13.6-17.9) L 02/11/25 04:28 Hct 23.2 % (39.6-49.0) L 02/11/25 04:28 Plt Count 308 thou/uL (152-406) 02/11/25 04:28 PT 17.9 SECONDS (10-13.0) H 02/11/25 08:00 INR 1.61 02/11/25 08:00 Sodium 134 mEq/L (136-145) L 02/11/25 04:28 Potassium 4.6 mEq/L (3.5-5.1) 02/11/25 04:28 BUN 82 mg/dL (7-18) H 02/11/25 04:28 Creatinine 2.28 mg/dL (0.70-1.30) H 02/11/25 04:28 Glucose 166 mg/dL (74-106) H 02/11/25 04:28 Magnesium 1.9 mg/dL (1.6-2.4) 02/11/25 04:28 Total Bilirubin 0.9 mg/dL (0.2-1.0) 02/11/25 04:28 AST 65 U/L (15-37) H 02/11/25 04:28 ALT 28 U/L (16-61) 02/11/25 04:28 Alkaline Phosphatase 484 U/L (45-117) H 02/11/25 04:28 Home Medications: Acetaminophen [Tylenol*] 1,000 mg PO Q6H PRN 02/10/25 Acetaminophen with Codeine [Acetaminophen-Cod #3 Tablet] 1 tab PO Q8H PRN 02/10/25 Amoxicillin [Amoxil] 875 mg PO BID 02/10/25 Atorvastatin Calcium 40 mg PO BEDTIME 02/10/25 Baclofen 10 mg PO BID 02/10/25 Bumetanide 1 mg PO BID 02/10/25 Docusate Sodium 100 mg PO BID 02/10/25 Gabapentin 300 mg PO BEDTIME 02/10/25 Insulin Regular, Human [Humulin R U-500 Kwikpen] See Protocol SQ ACHS 02/10/25 Lactulose 30 ml PO Q12H PRN 02/10/25 Lidocaine 4% Patch [Lidoderm 5% Patch*] 1 patch TOP DAILY 02/10/25 Metoprolol Succinate 25 mg PO DAILY 02/10/25 Pantoprazole Sodium 40 mg PO BID 02/10/25 Tamsulosin [Flomax*] 0.4 mg PO BID 02/10/25 hydrOXYzine pamoate [Hydroxyzine Pamoate] 25 mg PO Q12H PRN 02/10/25 methocarbamoL [Methocarbamol] 500 mg PO Q8H PRN 02/10/25 predniSONE [Prednisone*] 20 mg PO DAILY 02/10/25 Followup: Les Thompson MD [Primary Care Provider] - Time spent managing pt's care (in minutes): 45
[2025-02-11 17:23] VITALS: BMI 33.8
--- NOTE | 2025-02-11 19:35 | P.PN ---
Date of Service: 02/11/25 Vital Signs Temp Pulse Resp BP Pulse Ox 98.7 F 74 18 106/51 L 96 02/11/25 12:00 02/11/25 12:00 02/11/25 12:17 02/11/25 12:00 02/11/25 12:17 Assessment/ Plan: Nephrology No dyspnea No chest pain No acute events overnight Limited IH/ ROS due to confusion. Case reviewed with the family. Vitals, medications, blood work and imaging reviewed in the chart General: In no apparent distress HEENT: Atraumatic Neck: Supple Respiratory: Normal air movement Cardiovascular: Regular rate/rhythm, Edema Gastrointestinal: Soft and benign, Non-distended Musculoskeletal: No clubbing, No contractures Integumentary: No rashes, No cyanosis Neurological: Abnormal strength Blood work reviewed in the chart. Imagings Data: EXAM: CT CHEST, ABDOMEN AND PELVIS WITHOUT CONTRAST CLINICAL INDICATION: Male, 74 years old. [facility] MAIN dyspnea, abdominal distention Bed Name: 4 TECHNIQUE: CT chest, abdomen and pelvis was performed, without IV contrast, as per department protocol. Axial, sagittal and coronal reconstructions were obtained. One or more of the following dose reduction techniques were used: Automated exposure control, adjustment of the mA and/or kV according to the patient size, and/or iterative reconstruction. Unless otherwise specified, incidental findings do not require dedicated imaging follow-up. COMPARISON: 01/06/2025 FINDINGS: The lack of intravenous contrast limits the sensitivity of this exam for evaluation of solid visceral organs, vascular structures, and retroperitoneum. Chest: LOWER NECK/CHEST WALL: Visualized thyroid gland and soft tissues are normal. LUNGS AND AIRWAYS: Airways are clear. Dependent airspace opacities particularly in the right lung involving most of the right lower lobe, progressive, favoring atelectasis. Calcified ovoid right lower lobe 1.8 cm nodule, stable. Multiple left upper lung nodules largest measuring 11 mm within the upper lobe posteriorly on axial image 25. Some of the nodules are obscured by ongoing atelectasis and by motion artifact. PLEURA: Progressive moderate to large right pleural effusion. Trace left effusion perhaps mildly improved. No pneumothorax. Hemidiaphragms are normally positioned. MEDIASTINUM AND LYMPH NODES: Moderate to marked cardiomegaly, stable No mediastinal mass or fluid collection. Normal size mediastinal, hilar, and axillary lymph nodes. THORACIC AORTA: Normal caliber and configuration. PULMONARY ARTERIES: Normal caliber. HEART: Unremarkable. Abdomen/Pelvis LIVER: Hepatomegaly with nodular contour particularly along the inferior aspect of the right lobe, stable.. No focal lesion. GALLBLADDER/BILE DUCTS: No biliary ductal dilatation. PANCREAS: No mass, ductal dilation, or dank-pancreatic fluid. SPLEEN: Normal size. No focal lesion. ADRENALS: Normal; no mass. KIDNEYS AND URETERS: Stable contour with stable left cortical and parapelvic cystic lesions, largest at the lower pole measuring 7.9 cm. Numerous left renal calculi largest measuring up to 8 mm, probably stable although motion artifact limits evaluation. No hydronephrosis. GASTROINTESTINAL TRACT: Stomach is non-dilated. Small bowel has normal course and caliber. No colonic wall thickening or pericolonic inflammatory changes. PERITONEUM: Moderate free ascites, progressive since prior exam. LYMPH NODES: No lymphadenopathy. ABDOMINAL AORTA AND OTHER VESSELS: Normal caliber aorta and IVC. URINARY BLADDER: Normal contour. REPRODUCTIVE ORGANS: No pathologic process. MUSCULOSKELETAL: No acute or suspicious osseous abnormality. ADDITIONAL FINDINGS: Bilateral inguinal hernias containing fat. IMPRESSION: Progressive right pleural effusion and free ascites, now up to moderate. Other stable findings including hepatomegaly with nodular liver capsular contour, concerning for an underlying mass as seen on prior MRI. Other stable findings including multiple left renal cystic lesions, numerous nonobstructing left renal calculi. Motion artifact limits evaluation. EXAM: CT brain without contrast HISTORY: ams COMPARISON: None TECHNIQUE: Multiple contiguous axial images were obtained and a CT of the brain without contrast. Sagittal and coronal reformats were performed. FINDINGS: No evidence of hydrocephalus, intracranial hemorrhage, or extra-axial fluid collection. Moderate brain atrophy with moderate periventricular and deep white matter chronic microvascular ischemic changes present. The calvarium is intact. The visualized paranasal sinuses are clear. Patchy opacification within the mastoid air cells predominantly involving the mastoid antra bilaterally. IMPRESSION: No evidence of acute intracranial abnormality. Nonspecific white matter hypodensities as above. Mastoid effusions versus sequelae of otitis media bilaterally EXAM: CT of the cervical spine without contrast HISTORY: ams COMPARISON: None TECHNIQUE: Multiple contiguous axial images were obtained in a CT of the cervical spine without contrast. Sagittal and coronal reformats were performed. FINDINGS: The vertebral bodies demonstrate normal height and alignment. No evidence of acute fracture or subluxation.. Multilevel degenerative changes, mos t pronounced on the left at C2-3. Up to moderate multilevel degenerative changes, most pronounced on the right at C5-6 and C6-7. No prevertebral soft tissue swelling is seen. The posterior facets are well aligned. Normal alignment of the skull base with the cervical spine is seen. Calcified ovoid lesion measuring 5 mm in thickness along the left dorsal spinal canal at C4-5 level, could represent a calcified spinal meningioma. The lung apices are unremarkable. IMPRESSION: No evidence of acute osseous abnormality of the cervical spine. Multilevel degenerative changes and possible calcified spinal meningioma as above. Conclusions/Impression: CKD IIIb -No NSAIDs Hyponatremia -Continue Lasix Alkalosis -Diamox prn Diastolic CHF, A/C -Continue Lasix DM II with CKD -RISS prn Hypoalbuminemia -Consider Nepro Anemia in chronic illness/ CKD -Monitor H&H -Retacrit prn BPH with LUTS -Continue Flomax Hospitalist note reviewed Case reviewed with Dr. Desir; plan for hospice
== END 2025-02-11 13:25 | disposition hospice, inpatient (51) | DRG 291 ==
LOC: ER 18:19 → 4TH 23:22
PROVIDERS: ADMIT Family Medicine; ATTEND Hospitalist
DX: I13.0 Hypertensive heart and chronic kidney disease with heart failure and stage 1 through stage 4 chronic kidney disease, or unspecified chronic kidney disease (principal); G93.41 Metabolic encephalopathy; I50.33 Acute on chronic diastolic (congestive) heart failure; J96.21 Acute and chronic respiratory failure with hypoxia; J96.22 Acute and chronic respiratory failure with hypercapnia; R18.8 Other ascites; N17.9 Acute kidney failure, unspecified; I48.20 Chronic atrial fibrillation, unspecified; F05 Delirium due to known physiological condition; E72.20 Disorder of urea cycle metabolism, unspecified; C78.00 Secondary malignant neoplasm of unspecified lung; C78.7 Secondary malignant neoplasm of liver and intrahepatic bile duct; C79.89 Secondary malignant neoplasm of other specified sites; E87.1 Hypo-osmolality and hyponatremia; E87.3 Alkalosis; N18.32 Chronic kidney disease, stage 3b; E11.22 Type 2 diabetes mellitus with diabetic chronic kidney disease; E11.65 Type 2 diabetes mellitus with hyperglycemia; E11.40 Type 2 diabetes mellitus with diabetic neuropathy, unspecified; D63.1 Anemia in chronic kidney disease; E66.9 Obesity, unspecified; E78.00 Pure hypercholesterolemia, unspecified; N40.1 Benign prostatic hyperplasia with lower urinary tract symptoms; E88.09 Other disorders of plasma-protein metabolism, not elsewhere classified; I25.10 Atherosclerotic heart disease of native coronary artery without angina pectoris; B18.2 Chronic viral hepatitis C; I25.2 Old myocardial infarction; Z51.5 Encounter for palliative care; Z79.4 Long term (current) use of insulin; Z95.5 Presence of coronary angioplasty implant and graft; Z68.34 Body mass index [BMI] 34.0-34.9, adult; Z79.01 Long term (current) use of anticoagulants; Z79.52 Long term (current) use of systemic steroids; Z85.46 Personal history of malignant neoplasm of prostate; Z79.899 Other long term (current) drug therapy
CPT/HCPCS: 36415; 70450; 71250; 72125; 74176; 80048; 80053; 80076; 82140; 82947; 83735; 83880; 84484; 85025; 85610; 93005; 94760; 96372; 99285; J0696; J1630; J1650; J1938; J2003; J2270; J3486